=== PATIENT | female | born 1930 | race Caucasian/White ===

== ENCOUNTER 2017-03-07 17:28 | Inpatient (IN) ==
[2017-03-07] MEDS ORDERED: Nitroglycerin 1 INCH/GM PACKET TP ONE (19:20)
[2017-03-07 19:36] LABS: Eosinophils % 1.6 %; Hematocrit 27.5 % (35.3-44.9); Immature Granulocytes % 0.3 % (0-4); Mean Corpuscular Volume 90.8 fL (83.0-100.0); Mean Platelet Volume 9.1 fL (9.4-12.4); Red Blood Count 3.03 M/mcL (3.82-4.97)
[2017-03-07 19:38] LABS: Basophils % 0.6 %; Eosinophils # 0.1 K/mcL (0.0-0.6); Immature Platelets 2.2 % (1.1-6.1); Lymphocytes # 1.1 K/mcL (0.6-4.6); Lymphocytes % 36.2 %; Mean Corpuscular HGB Conc 32.7 g/dL (31.6-35.5); Mean Corpuscular Hemoglobin 29.7 pg (28.0-33.3); Monocytes # 0.3 K/mcL (0.0-1.3); Monocytes % 10.6 %; Neutrophils # 1.6 K/mcL (1.6-8.9); Red Cell Distribution Width 13.6 % (11.5-14.5); Segmented Neutrophils % 50.7 %
[2017-03-07 19:46] LABS: Calcium 10.2 mg/dL (8.6-10.8); Potassium 4.8 mEq/L (3.5-4.5)
[2017-03-07 19:54] LABS: Platelet Count 54 K/mcL (140-400)
[2017-03-07 19:58] LABS: Platelet Estimate Decreased (Normal)
[2017-03-07] MEDS ORDERED: Naloxone 0.4 MG/ML INJ IVP PRN (23:11)
--- NOTE | 2017-03-07 23:11 | Internal Med History&Physical ---
Date of Encounter: 03/07/17 Time of Encounter: 23:10 Assessment and Plan (1) Acute exacerbation of CHF (congestive heart failure) Current visit: Yes Status: Acute Patient has history of CHF and end-stage renal disease on hemodialysis. Chest x -ray is is still volume overload with the pulmonary vascular congestion and pulmonary edema. Patient is given a dose of intravenous Lasix. She will need hemodialysis. We will consult nephrology. She is on BiPAP for acute respiratory failure. Qualifiers: Congestive heart failure type: diastolic Qualified Code(s): I50.33 - Acute on chronic diastolic (congestive) heart failure (2) Acute respiratory failure Current visit: Yes Status: Acute Due to acute exacerbation of CHF/pulmonary edema. Patient is on BiPAP therapy. Continue. Qualifiers: Respiratory failure complication: hypoxia Qualified Code(s): J96.01 - Acute respiratory failure with hypoxia (3) Anemia Current visit: Yes Status: Chronic Likely secondary to anemia of chronic disease from ESRD. Hemoglobin seemed to be stable. Monitor Qualifiers: Anemia type: unspecified type Qualified Code(s): D64.9 - Anemia, unspecified (4) ESRD (end stage renal disease) on dialysis Current visit: Yes Status: Chronic On hemodialysis. Nephrology consultation - Dr Gallardo (5) Hypertension Current visit: Yes Status: Chronic Continue her home antihypertensive medications Qualifiers: Hypertension type: essential hypertension Qualified Code(s): I10 - Essential (primary) hypertension (6) DVT prophylaxis Current visit: Yes Status: Acute Heparin Internal Medicine - H&P: HPI Chief complaint: Shortness of breath Admitted From: Emergency Dept Plans for Post Hospital Care: Home History of present illness: Ms. 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 She presents to the emergency department with the history of gradually progressing shortness of breath over the last week. She now has shortness of breath at rest, orthopnea. She also reports swelling of the legs. She denies chest pain, cough, expectation, fever or chills, nausea, vomiting, abdominal pain, dysuria, hematuria, bowel problems. She was evaluated in the emergency department and was thought to have pulmonary vascular congestion, CHF. She was hypoxic in the ER and was started on BiPAP therapy and admitted to the hospitalist service for further workup and management. Past Med Surg Social Fam HX - Past Medical History Medical history: arthritis, CHF, coronary artery disease, dialysis, hyperlipidemia, hypertension, myocardial infarction, renal disease, valvular heart disease Psychiatric history: no psych history - Past Surgical History Surgical History: angioplasty/stent, appendectomy, cholecystectomy, heart valve replacement, herniorrhaphy - Social History Smoking Status: Never smoker Smokeless Tobacco Status: No Alcohol use: none Drug use: none - Family History Father Living Status: Brother Living Status: Sister Living Status: Mother Living Status: Hx Family Cardiac Disorders: Yes Internal Medicine - H&P: Meds Furosemide [Lasix] 20 mg PO DAILY 05/05/15 [History] Levothyroxine [Synthroid] 50 mcg PO QAM 05/05/15 [History] Multivitamin [Multivitamins] 1 each PO DAILY 05/05/15 [History] Ropinirole HCl [Requip] 1 mg PO HS 05/05/15 [History] Sodium Bicarbonate 1,300 mg PO BID 05/05/15 [History] Lisinopril 30 mg PO BID 09/17/16 [History] cloNIDine HCl [CloNIDine HCl] 0.1 mg PO BID 09/17/16 [History] Cinacalcet [Sensipar] 30 mg PO DAILY 03/07/17 [History] Labetalol HCl 200 mg PO BID 03/07/17 [History] Pantoprazole Sodium [Protonix] 40 mg PO DAILY 03/07/17 [History] amLODIPine [Norvasc] 5 mg PO BID 03/07/17 [History] Allergies nystatin Allergy (Mild, Verified 03/07/17 16:42) See Comments Shortly after application, pt complained of burning and redness at areas of application. quinine Allergy (Verified 03/07/17 16:42) Rash Tetanus Vaccines and Toxoid [Tetanus Vaccines & Toxoid] Adverse Reaction ( Unknown, Verified 03/07/17 16:42) See Comments Pt unsure. adhesive tape Adverse Reaction (Verified 03/07/17 16:42) Blister Sulfa (Sulfonamide Antibiotics) Adverse Reaction (Verified 03/07/17 16:42) See Comments pt. unsure All Systems PM: A 10-system review of systems was performed and is negative for pertinent findings except as documented above in the HPI. - Constitutional Vitals: Temp Pulse Resp BP Pulse Ox 98.3 F 63 20 167/51 96 03/07/17 17:40 03/07/17 22:34 03/07/17 22:34 03/07/17 22:34 03/07/17 22:34 Exam: General: Not in acute distress at the time of my evaluation. She is anxious with the BiPAP mask on and wants to remove that HEENT: BiPAP mask present. No conjunctival palor or scleral icterus Neck: No obvious neck swellings Lungs: Bilateral basal crackles present. Cardiac: Regular rate and rhythm. Systolic murmur present Abdomen: Soft, non tender. Bowel sounds present Genitourinary: No josé catheter Neurological: Alert and oriented. No gross localizing deficits Psych: Not aggressive or agitated Extremities: Bilateral leg edema Skin: No generalized rash Internal Med - H&P Results - Labs CBC & Chem 7: 03/07/17 19:27 03/07/17 19:27 - EKG Data -: EKG Interpreted by Myself EKG shows normal: sinus rhythm - EKG Data EKG comments: Daily as needed 3, aVF, V1, V2. Poor R-wave progression in V3 and V4. 03/08/17 04:26 - Impressions ITS Impressions Chest X-Ray 03/07/17 17:44 IMPRESSION: Findings compatible with congestive heart failure with pulmonary vascular congestion, mild pulmonary and interstitial edema along with bilateral pleural effusions, left larger than right. Likely associated bibasilar atelectasis. Stable cardiomegaly. D/ : / 03/07/2017 19:06:38 Ludwin Geronimo MD / jaqueline Interpreting Provider: Ludwin Geronimo MD
[2017-03-07] MEDS ORDERED: Furosemide 40 MG/4 ML VIAL IVP ONE (23:13)
--- NOTE | 2017-03-08 00:42 | Emergency Department Note ---
Disposition Clinical Impression: CHF (congestive heart failure) Qualifiers: Congestive heart failure type: combined Congestive heart failure chronicity: chronic Qualified Code(s): I50.42 - Chronic combined systolic (congestive) and diastolic (congestive) heart failure Disposition: Admitted As Inpatient Condition: Fair General Adult HPI - General Chief complaint: ED Shortness of Breath/Dyspnea Stated complaint: GURMEET, CHF exacerbation, HTN Time Seen by Provider: 03/07/17 19:11 Source: patient, family Limitations: no limitations Nursing Notes Reviewed: Yes Vital Signs Reviewed: Yes - History of Present Illness HPI Narrative: 78-year-old female presents with concern for dyspnea. Onset was several days ago. She has a history of end-stage renal disease and is on dialysis. She also has a history of congestive heart failure. She follows with Dr. Moore and nephrology. She denies fever or chills. She has audible rales and tachypnea at triage. She is mildly hypertensive. . Pain Scale: 0 - Related Data Home Medications Medication Instructions Recorded Confirmed Furosemide [Lasix] 20 mg PO DAILY 05/05/15 03/07/17 Levothyroxine [Synthroid] 50 mcg PO QAM 05/05/15 03/07/17 Multivitamin [Multivitamins] 1 each PO DAILY 05/05/15 03/07/17 Ropinirole HCl [Requip] 1 mg PO HS 05/05/15 03/07/17 Sodium Bicarbonate 1,300 mg PO BID 05/05/15 03/07/17 Lisinopril 30 mg PO BID 09/17/16 03/07/17 cloNIDine HCl [CloNIDine HCl] 0.1 mg PO BID 09/17/16 03/07/17 Cinacalcet [Sensipar] 30 mg PO DAILY 03/07/17 03/07/17 Labetalol HCl 200 mg PO BID 03/07/17 03/07/17 Pantoprazole Sodium [Protonix] 40 mg PO DAILY 03/07/17 03/07/17 amLODIPine [Norvasc] 5 mg PO BID 03/07/17 03/07/17 Allergies Allergy/AdvReac Type Severity Reaction Status Date / Time nystatin Allergy Mild See Verified 03/07/17 16:42 Comments quinine Allergy Rash Verified 03/07/17 16:42 Tetanus Vaccines and Toxoid AdvReac Unknown See Verified 03/07/17 16:42 [Tetanus Vaccines & Toxoid] Comments adhesive tape AdvReac Blister Verified 03/07/17 16:42 Sulfa (Sulfonamide AdvReac See Verified 03/07/17 16:42 Antibiotics) Comments All systems ED: reviewed and negative except as stated. 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 - Social History Smoking Status: Never smoker Smokeless Tobacco Status: No Alcohol use: Reports: none Drug use: Reports: none Physical Exam Rales bilaterally tachypnea - General Limitations: no limitations General appearance: alert - Head Head exam: atraumatic - Eye Eye exam: Present: normal appearance - ENT ENT exam: normal exam, normal oropharynx - Neck Neck exam: Present: normal inspection, full ROM - Chest Chest inspection: Present: normal inspection - Respiratory Respiratory exam: Present: accessory muscle use - Cardiovascular Cardiovascular exam: Present: regular rate, JVD - Abdominal Exam Abdominal exam: Present: soft, Non-Tender - Extremities Exam Extremities exam: Present: normal inspection, full ROM - Expanded Lower Extremity Exam Hip/Pelvis exam: Present: normal inspection, full ROM Upper leg exam: Present: normal inspection, full ROM - Back Exam Back exam: Present: normal inspection, full ROM - Neurological Exam Neurological exam: Present: alert, oriented X3, CN II-XII intact - Psychiatric Psychiatric exam: Present: normal affect, normal mood - Skin Skin exam: Present: warm, dry Course Vital Signs Temperature 98.3 F 03/07/17 17:40 Pulse Rate 63 03/07/17 17:40 Respiratory Rate 20 03/07/17 17:40 Blood Pressure 193/65 03/07/17 17:40 O2 Sat by Pulse Oximetry 94 03/07/17 17:40 Temperature 98.3 F 03/07/17 17:40 Pulse Rate 63 03/07/17 22:34 Respiratory Rate 20 03/07/17 23:55 Blood Pressure 170/78 03/07/17 23:55 O2 Sat by Pulse Oximetry 96 03/07/17 22:34 Oxygen Delivery Oxygen Delivery Nasal Cannula Medical Decision Making - MDM Narrative Medical decision making narrative: The patient is on dialysis schedule as prescribed. She has dyspnea consistent with congestive heart failure. Her chest x-ray shows pulmonary vascular congestion. EKG is nondiagnostic for STEMI. Cardiac biomarkers are mildly elevated consistent with end-stage renal disease. She does not make urine and diuresis would not provide much benefit at this point. She was placed on BiPAP with improvement of symptoms. Nitroglycerin was applied. It is likely that she will need dialysis for improvement of heart failure symptoms. She likely has volume overload at this stage. Plan to admit for possible dialysis tomorrow. I did attempt to notify Dr. Moore and a page was placed however we were unable to reach him. He will be notified via consultation by our hospitalist team - Medical Records Medical records reviewed: Yes I reviewed the patient's medical records. - Lab Data Lab results reviewed: Yes I reviewed the patient's lab results. Result diagrams: 03/07/17 19:27 03/07/17 19:27 Lab Results 03/07/17 03/07/17 03/07/17 Range/Units 19:27 19:27 19:27 WBC 3.1 L (4.3-11.1) K/mcL RBC 3.03 L (3.82-4.97) M/mcL Hgb 9.0 L (11.5-15.4) g/dL Hct 27.5 L (35.3-44.9) % MCV 90.8 (83.0-100.0) fL MCH 29.7 (28.0-33.3) pg MCHC 32.7 (31.6-35.5) g/dL RDW 13.6 (11.5-14.5) % Plt Count 54 L (140-400) K/mcL MPV 9.1 L (9.4-12.4) fL Immature Gran % 0.3 (0-4) % Seg Neutrophils % 50.7 % Lymphocytes % 36.2 % Monocytes % 10.6 % Eosinophils % 1.6 % Basophils % 0.6 % Neutrophils # 1.6 (1.6-8.9) K/mcL Lymphocytes # 1.1 (0.6-4.6) K/mcL Monocytes # 0.3 (0.0-1.3) K/mcL Eosinophils # 0.1 (0.0-0.6) K/mcL Basophils # 0.0 (0.0-0.2) K/mcL Platelet Estimate Decreased L (Normal) Immature Plt Fraction 2.2 (1.1-6.1) % Sodium 140 (136-145) mEq/L Potassium 4.8 H (3.5-4.5) mEq/L Chloride 106 (98-109) mEq/L Carbon Dioxide 25 (19-29) mEq/L BUN 37 H (7-20) mg/dL Creatinine 5.93 H (0.57-1.11) mg/dL Est GFR ( Amer) 8 L (> 60) Est GFR (Non-Af Amer) 7 L (> 60) BUN/Creatinine Ratio 6 (6-26) Glucose 108 H (70-99) mg/dL Calculated Osmolality 299 (280-300) Calcium 10.2 (8.6-10.8) mg/dL Troponin I 0.04 H* (0-0.03) ng/mL B-Natriuretic Peptide (0-100) pg/mL 03/07/17 Range/Units 19:27 WBC (4.3-11.1) K/mcL RBC (3.82-4.97) M/mcL Hgb (11.5-15.4) g/dL Hct (35.3-44.9) % MCV (83.0-100.0) fL MCH (28.0-33.3) pg MCHC (31.6-35.5) g/dL RDW (11.5-14.5) % Plt Count (140-400) K/mcL MPV (9.4-12.4) fL Immature Gran % (0-4) % Seg Neutrophils % % Lymphocytes % % Monocytes % % Eosinophils % % Basophils % % Neutrophils # (1.6-8.9) K/mcL Lymphocytes # (0.6-4.6) K/mcL Monocytes # (0.0-1.3) K/mcL Eosinophils # (0.0-0.6) K/mcL Basophils # (0.0-0.2) K/mcL Platelet Estimate (Normal) Immature Plt Fraction (1.1-6.1) % Sodium (136-145) mEq/L Potassium (3.5-4.5) mEq/L Chloride (98-109) mEq/L Carbon Dioxide (19-29) mEq/L BUN (7-20) mg/dL Creatinine (0.57-1.11) mg/dL Est GFR ( Amer) (> 60) Est GFR (Non-Af Amer) (> 60) BUN/Creatinine Ratio (6-26) Glucose (70-99) mg/dL Calculated Osmolality (280-300) Calcium (8.6-10.8) mg/dL Troponin I (0-0.03) ng/mL B-Natriuretic Peptide 3308 H (0-100) pg/mL
[2017-03-08] MEDS ORDERED: *HR* LORazepam 2 MG/ML VIAL IVP ONE (00:57)
[2017-03-08] MEDS ORDERED: *HR* Heparin 5,000 UNIT/ML VIAL SQ SCH (06:00)
[2017-03-08 06:16] LABS: Basophils % 0.4 %; Eosinophils % 0.4 %; Hemoglobin 9.1 g/dL (11.5-15.4); Immature Granulocytes % 0.4 % (0-4); Red Cell Distribution Width 13.5 % (11.5-14.5)
[2017-03-08 06:19] LABS: Hematocrit 27.6 % (35.3-44.9); Immature Platelets 1.9 % (1.1-6.1); Lymphocytes # 0.6 K/mcL (0.6-4.6); Lymphocytes % 23.7 %; Mean Corpuscular Hemoglobin 29.8 pg (28.0-33.3); Mean Corpuscular Volume 90.5 fL (83.0-100.0); Mean Platelet Volume 10.1 fL (9.4-12.4); Monocytes # 0.2 K/mcL (0.0-1.3); Monocytes % 7.3 %; Neutrophils # 1.8 K/mcL (1.6-8.9); Red Blood Count 3.05 M/mcL (3.82-4.97); Segmented Neutrophils % 67.8 %
[2017-03-08 06:20] LABS: Platelet Count 47 K/mcL (140-400)
[2017-03-08 06:28] LABS: Magnesium 1.9 mg/dL (1.6-2.6); Potassium 5.3 mEq/L (3.5-4.5)
--- NOTE | 2017-03-08 08:15 | Nephrology Consult Note ---
Date of Encounter: 03/08/17 Time of Encounter: 08:13 Assessment and Plan (1) ESRD (end stage renal disease) on dialysis Current Visit: Yes Status: Chronic Patient has end-stage renal disease. She presents with a clinical picture of acute on chronic diastolic congestive heart failure and poorly controlled blood pressure. She will undergo dialysis today for volume removal. Blood pressure medications will also be adjusted. Hemoglobin is 9.1. She will be given Aranesp. She does have evidence of pancytopenia. (2) Benign hypertension with end-stage renal disease Current Visit: Yes Status: Acute (3) Anemia in chronic kidney disease (CKD) Current Visit: Yes Status: Acute (4) Diastolic heart failure Current Visit: No Status: Chronic Qualifiers: Heart failure chronicity: chronic Qualified Code(s): I50.32 - Chronic diastolic (congestive) heart failure History of Present Illness - History of Present Illness This is an 86-year-old female [facility] Patient was admitted with a one-week history of progressive shortness of breath. Clinical picture is consistent with congestive heart failure. Previous echo showed an EF of 65%. She does report some swelling of the lower extremities but on physical exam there actually look fairly good. Her blood pressure is under suboptimal control. Patient has been having some orthopnea. She denies any chest pain. She denies any coughing. She was maintained on BiPAP overnight. She will undergo dialysis today. Fluid removal on dialysis has been limited by muscle cramping as an outpatient. Past Med Surg Social Fam HX - Past Medical History Medical history: arthritis, CHF, coronary artery disease, dialysis, hyperlipidemia, hypertension, myocardial infarction, renal disease, valvular heart disease Psychiatric history: no psych history - Past Surgical History Surgical History: angioplasty/stent, appendectomy, cholecystectomy, heart valve replacement, herniorrhaphy - Social History Smoking Status: Never smoker Smokeless Tobacco Status: No Alcohol use: none Drug use: none - Family History Father Living Status: Brother Living Status: Sister Living Status: Mother Living Status: Hx Family Cardiac Disorders: Yes Medications and Allergies Furosemide [Lasix] 20 mg PO DAILY 05/05/15 [History] Levothyroxine [Synthroid] 50 mcg PO QAM 05/05/15 [History] Multivitamin [Multivitamins] 1 each PO DAILY 05/05/15 [History] Ropinirole HCl [Requip] 1 mg PO HS 05/05/15 [History] Sodium Bicarbonate 1,300 mg PO BID 05/05/15 [History] Lisinopril 30 mg PO BID 09/17/16 [History] cloNIDine HCl [CloNIDine HCl] 0.1 mg PO BID 09/17/16 [History] Cinacalcet [Sensipar] 30 mg PO DAILY 03/07/17 [History] Labetalol HCl 200 mg PO BID 03/07/17 [History] Pantoprazole Sodium [Protonix] 40 mg PO DAILY 03/07/17 [History] amLODIPine [Norvasc] 5 mg PO BID 03/07/17 [History] Allergies nystatin Allergy (Mild, Verified 03/07/17 16:42) See Comments Shortly after application, pt complained of burning and redness at areas of application. quinine Allergy (Verified 03/07/17 16:42) Rash Tetanus Vaccines and Toxoid [Tetanus Vaccines & Toxoid] Adverse Reaction ( Unknown, Verified 03/07/17 16:42) See Comments Pt unsure. adhesive tape Adverse Reaction (Verified 03/07/17 16:42) Blister Sulfa (Sulfonamide Antibiotics) Adverse Reaction (Verified 03/07/17 16:42) See Comments pt. unsure Review of Systems Constitutional: as per HPI Eyes: bilateral: blurred vision (patient denies), diplopia (patient denies) Nose, mouth and throat: no dizziness, no headache(s) Cardiovascular: dyspnea, dyspnea on exertion, edema Respiratory: dyspnea, dyspnea on exertion Gastrointestinal: no abdominal pain, no change in bowel habits Musculoskeletal: no muscle weakness, no numbness Integumentary: no hirsutism, no striae Neurological: as per HPI Psychiatric: no depression, no difficulty concentrating Endocrine: as per HPI Hematologic/Lymphatic: no easy bruising, no lymphadenopathy Exam - Vital Signs Vital signs: Initial Vital Signs Temp Pulse Resp BP Pulse Ox 98.3 F 63 20 193/65 94 03/07/17 17:40 03/07/17 17:40 03/07/17 17:40 03/07/17 17:40 03/07/17 17:40 Vital Signs - Last 8 Hours Temp Pulse Resp BP Pulse Ox 03/08/17 08:02 98.0 F 70 20 176/63 96 03/08/17 05:35 98.3 F 76 18 185/51 97 03/08/17 05:13 18 96 03/08/17 00:55 29 96 Intake and Output 03/07/17 03/08/17 03/08/17 23:59 07:59 15:59 Other: Blood Glucose* 177 - General Appearance Exam: The patient is sitting on the edge of the bed eating breakfast. She is alert and oriented. She is in no acute distress. Blood pressure 180/79. Lungs faint bibasilar rales. Heart regular rate and rhythm with a 2/6 talk ejection murmur. Abdomen normal bowel sounds bruits masses organomegaly or tenderness. Lower extremities show minimal swelling. There is a tunnel dialysis catheter in the left chest. Results - Lab Results 03/08/17 05:41 03/08/17 05:41 Most recent lab results Calcium 10.0 mg/dL (8.6-10.8) 03/08/17 05:41 Magnesium 1.9 mg/dL (1.6-2.6) 03/08/17 05:41 Consult Discharge Plan - Plan Referrals: Angel Mcelroy DO [Primary Care Provider] -
[2017-03-08] MEDS: amLODIPine 5 MG TABLET PO SCH ×2 (08:17→20:31)
[2017-03-08] MEDS: Multivit/Ca/Min/Fe/FA 1 TAB TABLET PO SCH (08:17)
[2017-03-08] MEDS: Furosemide 20 MG TABLET PO SCH (08:17)
[2017-03-08] MEDS: cloNIDine HCl 0.1 MG TABLET PO SCH ×2 (08:17→20:31)
[2017-03-08] MEDS ORDERED: 0.9 % Sodium Chloride 250 ML IVC PRN (08:18)
[2017-03-08] MEDS ORDERED: *HR* Heparin 10,000 UNIT/10 ML VIAL IV PRN (08:32)
[2017-03-08] MEDS ORDERED: 0.9 % Sodium Chloride 2,000 ML ONE (08:37)
[2017-03-08 13:02] LABS: Hepatitis B Surface Antigen Nonreactive (Nonreactive)
--- NOTE | 2017-03-08 17:11 | Internal Med Progress Note ---
Date of Encounter: 03/08/17 Time of Encounter: 10:25 - Assessment and plan (1) Acute exacerbation of CHF (congestive heart failure) Current Visit: Yes Status: Acute Assessment and plan: Continue volume management with hemodialysis. Patient is clinically getting better. Continue lisinopril. Moderate risk for complications Qualifiers: Congestive heart failure type: diastolic Qualified Code(s): I50.33 - Acute on chronic diastolic (congestive) heart failure (2) Acute respiratory failure Current Visit: Yes Status: Acute Assessment and plan: Due to pulmonary edema and CHF. On 6 L nasal cannula. Will wean FiO2 as tolerated Qualifiers: Respiratory failure complication: hypoxia Qualified Code(s): J96.01 - Acute respiratory failure with hypoxia (3) Anemia Current Visit: Yes Status: Chronic Assessment and plan: Stable anemia. From chronic kidney disease. Qualifiers: Anemia type: other cause Other causes of anemia: chronic disease, kidney Qualified Code(s): N18.9 - Chronic kidney disease, unspecified; D63.1 - Anemia in chronic kidney disease (4) DVT prophylaxis Current Visit: Yes Status: Acute (5) ESRD (end stage renal disease) on dialysis Current Visit: Yes Status: Chronic Assessment and plan: Receiving dialysis today. Nephrology following (6) Hypertension Current Visit: No Status: Chronic Assessment and plan: Blood pressure elevated today. Resume home medications. Will monitor blood pressure closely. Adjust antihypertensives accordingly. Qualifiers: Hypertension type: essential hypertension Qualified Code(s): I10 - Essential (primary) hypertension - Subjective Interval history: Patient is receiving hemodialysis. Reports that her symptoms are improving. Shortness of breath is much better already. No chest pain. No other acute issues reported. - Constitutional Vitals: Temp Pulse Resp BP Pulse Ox 98.0 F 67 20 164/57 97 03/08/17 15:49 03/08/17 15:49 03/08/17 15:49 03/08/17 15:49 03/08/17 15:49 General appearance: Present: cooperative, mild distress, A&O X 3, pleasant, answers questions appropriately - Respiratory Respiratory exam: Present: CTAB. Absent: accessory muscle use, rales, rhonchi, wheezes - Cardiovascular Cardiovascular exam: Present: RRR, +S1, +S2. Absent: diastolic murmur, gallop, rubs, systolic murmur - GI/Abdominal GI/Abdominal exam: Present: normal bowel sounds, soft, no peritoneal signs. Absent: distended, tenderness - Extremities Exam Extremities exam: Present: pedal edema, warm, radial pulses palpable and symetrical. Absent: calf tenderness, cyanotic Internal Medicine: Result - Labs CBC & Chem 7: 03/08/17 05:41 03/08/17 05:41 Labs: Short CBC 03/08/17 Range/Units 05:41 WBC 2.6 L (4.3-11.1) K/mcL Hgb 9.1 L (11.5-15.4) g/dL Hct 27.6 L (35.3-44.9) % Plt Count 47 L (140-400) K/mcL Neutrophils # 1.8 (1.6-8.9) K/mcL BMP 03/08/17 05:41 Sodium 140 Potassium 5.3 H Chloride 106 Carbon Dioxide 23 BUN 40 H Creatinine 6.28 H Glucose 126 H Calcium 10.0 Cardiac Enzymes 03/08/17 03/08/17 Range/Units 05:41 11:00 Troponin I 0.05 H* 0.06 H* (0-0.03) ng/mL - VTE Documentation of Mechanical Device: Intermittent pneumatic compression device Consult Discharge Plan - Plan Referrals: Angel Mcelroy DO [Primary Care Provider] - 03/15/17 11:30 am (web request. 03/2017) - Attending Attestation This document has been at least partially created by [employer] recognition technology by Dr. Buckley. Errors in grammar, wording or other phrases may exist. If errors are found after the documentation is signed, they will be addressed individually in the addendum section of this document when appropriate.
[2017-03-08] MEDS ORDERED: Acetaminophen 325 MG TABLET PO ONE (20:14)
[2017-03-08] MEDS ORDERED: rOPINIRole 1 MG TABLET PO SCH (21:00)
--- NOTE | 2017-03-08 23:52 | Electrocardiograph Report ---
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
[2017-03-09 06:14] LABS: Basophils % 0.6 %; Eosinophils # 0.1 K/mcL (0.0-0.6); Eosinophils % 1.6 %; Hemoglobin 7.7 g/dL (11.5-15.4); Immature Granulocytes % 0.3 % (0-4); Mean Corpuscular HGB Conc 32.1 g/dL (31.6-35.5); Mean Corpuscular Hemoglobin 29.1 pg (28.0-33.3); Mean Corpuscular Volume 90.6 fL (83.0-100.0); Mean Platelet Volume 9.9 fL (9.4-12.4); Monocytes # 0.3 K/mcL (0.0-1.3); Monocytes % 10.9 %; Neutrophils # 1.7 K/mcL (1.6-8.9); Red Blood Count 2.65 M/mcL (3.82-4.97); Red Cell Distribution Width 13.3 % (11.5-14.5); Segmented Neutrophils % 53.6 %
[2017-03-09 06:15] LABS: Platelet Count 44 K/mcL (140-400)
[2017-03-09 06:51] LABS: Calcium 8.7 mg/dL (8.6-10.8)
--- NOTE | 2017-03-09 08:27 | Nephrology Progress Note ---
Date of Encounter: 03/09/17 Time of Encounter: 08:25 - Assessment and Plan (1) ESRD (end stage renal disease) on dialysis Current Visit: Yes Status: Chronic Patient's dyspnea is improved following dialysis. She still has evidence of some dry rales on exam. This raises the possibility of possible interstitial lung disease. She also exhibits pancytopenia. May be worthwhile to consider a hematology consultation. She continues on Aranesp for her anemia. (2) Benign hypertension with end-stage renal disease Current Visit: Yes Status: Acute (3) Anemia in chronic kidney disease (CKD) Current Visit: Yes Status: Acute (4) Diastolic heart failure Current Visit: No Status: Chronic Qualifiers: Heart failure chronicity: chronic Qualified Code(s): I50.32 - Chronic diastolic (congestive) heart failure Subjective Interval history: The patient reports her exertional dyspnea is improved. She tolerated dialysis yesterday. She only had a small amount of muscle cramping. Blood pressure is improved as well. Hemoglobin has dropped however. She also has evidence of pancytopenia. Objective - Vital Signs Vital signs: Vital Signs Temp Pulse Resp BP Pulse Ox 03/09/17 07:06 98.4 F 61 16 178/61 99 03/09/17 03:21 98.5 F 62 21 153/49 96 03/08/17 23:12 98.2 F 66 24 135/47 96 03/08/17 20:25 97.8 F 65 17 165/65 98 03/08/17 15:49 98.0 F 67 20 164/57 97 03/08/17 14:24 155/67 03/08/17 12:40 97.7 F 18 155/67 03/08/17 12:30 142/63 03/08/17 12:15 132/56 03/08/17 12:00 129/51 03/08/17 11:45 126/53 03/08/17 11:30 128/51 03/08/17 11:15 139/58 03/08/17 11:00 147/64 03/08/17 10:45 150/62 03/08/17 10:30 163/69 03/08/17 10:15 162/66 03/08/17 10:00 168/66 03/08/17 09:45 175/68 03/08/17 09:30 97.7 F 22 181/71 Intake and Output 03/08/17 03/09/17 03/09/17 23:59 07:59 15:59 Other: # Voids 1 Weight 71.2 kg Blood Glucose* 140 101 Patient Weight 03/09/17 23:59 Weight 71.2 kg - General Appearance Exam: Patient is alert and oriented. She is in no acute distress. Lungs bibasilar dry rales. Heart irregular rate and rhythm. Abdomen is benign. There is no peripheral edema. There is a tunnel dialysis catheter in the left chest. - Lab 03/09/17 05:44 03/09/17 05:44 Most recent lab results Calcium 8.7 mg/dL (8.6-10.8) 03/09/17 05:44 Magnesium 1.9 mg/dL (1.6-2.6) 03/08/17 05:41 - VTE Documentation of Mechanical Device: Intermittent pneumatic compression device Consult Discharge Plan - Plan Referrals: Angel Mcelroy DO [Primary Care Provider] - 03/15/17 11:30 am (web request. 03/2017)
[2017-03-09 09:10] LABS: % Iron Saturation 25 % (15-50); Iron 52 mcg/dL (50-170); Transferrin 149 mg/dL (180-382)
[2017-03-09 09:12] LABS: Hematocrit 26.9 % (35.3-44.9); Hemoglobin 8.9 g/dL (11.5-15.4)
[2017-03-09] MEDS: Multivit/Ca/Min/Fe/FA 1 TAB TABLET PO SCH (09:22)
[2017-03-09] MEDS: Furosemide 20 MG TABLET PO SCH (09:23)
[2017-03-09] MEDS: amLODIPine 5 MG TABLET PO SCH (09:23)
[2017-03-09] MEDS: cloNIDine HCl 0.1 MG TABLET PO SCH (09:26)
[2017-03-09 10:04] LABS: Ferritin 2302 ng/ml (5-204)
[2017-03-09 10:40] VITALS: BP 146/49
[2017-03-09 10:52] LABS: Folate 15.4 ng/mL (7.0-31.4)
--- NOTE | 2017-03-09 14:35 | Discharge Summary ---
Date of Encounter: 03/09/17 Time of Encounter: 11:30 - Discharge Diagnosis (1) Acute exacerbation of CHF (congestive heart failure) Priority: Primary Status: Acute Qualifiers: Congestive heart failure type: diastolic Qualified Code(s): I50.33 - Acute on chronic diastolic (congestive) heart failure (2) Acute respiratory failure Priority: Secondary Status: Resolved Qualifiers: Respiratory failure complication: hypoxia Qualified Code(s): J96.01 - Acute respiratory failure with hypoxia (3) Anemia Priority: Secondary Status: Chronic Qualifiers: Anemia type: other cause Other causes of anemia: chronic disease, kidney Qualified Code(s): N18.9 - Chronic kidney disease, unspecified; D63.1 - Anemia in chronic kidney disease (4) DVT prophylaxis Priority: Secondary Status: Acute (5) ESRD (end stage renal disease) on dialysis Priority: Secondary Status: Chronic (6) Hypertension Priority: Secondary Status: Chronic Qualifiers: Hypertension type: essential hypertension Qualified Code(s): I10 - Essential (primary) hypertension - Discharge Medications Prescriptions: Labetalol [Trandate] 100 mg PO BID #60 tablet Home Medications: Furosemide [Lasix] 20 mg PO DAILY 05/05/15 [History] Levothyroxine [Synthroid] 50 mcg PO QAM 05/05/15 [History] Multivitamin [Multivitamins] 1 each PO DAILY 05/05/15 [History] Ropinirole HCl [Requip] 1 mg PO HS 05/05/15 [History] Sodium Bicarbonate 1,300 mg PO BID 05/05/15 [History] Lisinopril 30 mg PO BID 09/17/16 [History] cloNIDine HCl [CloNIDine HCl] 0.1 mg PO BID 09/17/16 [History] Cinacalcet [Sensipar] 30 mg PO DAILY 03/07/17 [History] Labetalol HCl 200 mg PO BID 03/07/17 [History] Pantoprazole Sodium [Protonix] 40 mg PO DAILY 03/07/17 [History] amLODIPine [Norvasc] 5 mg PO BID 03/07/17 [History] Labetalol [Trandate] 100 mg PO BID #60 tablet 03/09/17 [Rx] Allergies/Adverse Reactions: Allergies nystatin Allergy (Mild, Verified 03/07/17 16:42) See Comments Shortly after application, pt complained of burning and redness at areas of application. quinine Allergy (Verified 03/07/17 16:42) Rash Tetanus Vaccines and Toxoid [Tetanus Vaccines & Toxoid] Adverse Reaction ( Unknown, Verified 03/07/17 16:42) See Comments Pt unsure. adhesive tape Adverse Reaction (Verified 03/07/17 16:42) Blister Sulfa (Sulfonamide Antibiotics) Adverse Reaction (Verified 03/07/17 16:42) See Comments pt. unsure Date of admission: 03/07/17 23:26 Primary care physician: Angel Mcelroy DO Consults: 03/08/17 01:22 Consult to Apiarist [CONS] Routine Reason for SW Consult: Patient from home alone with frequent checking in from family members. Ambulates and cares for self well with use of walker. Patient does not have home oxygen at this time and home health is not in place. 03/08/17 08:30 Consult to Dialysis [CONS] ONCE Discharging clinician: Willy Buckley Anticipated date of discharge: 03/09/17 - Patient Status Disposition: Home, Self-Care Condition: Good Functional capacity at discharge: wheelchair bound Overall status at discharge: patient is progressing back to baseline - Discharge Instructions Instructions: Heart Failure (DC), Acute Respiratory Distress Syndrome (DC), Anemia (GEN) Follow Up With: Angel Mcelroy DO [Primary Care Provider] - 03/15/17 11:30 am (web request. 03/2017) Forms: ED Satisfaction Letter Additional Instructions: Avoid stopping clonidine abruptly. - Diet and Activity Activity: increase activity as tolerated Diet: low fat, low cholesterol, low salt diet, other (Renal ) Hospital course: Ms. Andrew is a 86 year old female patient with a history of end-stage renal disease on hemodialysis was admitted with acute exacerbation of CHF with acute respiratory failure. Patient was requiring about 5-6 L/m O2 supplementation via nasal cannula to keep her sats are greater than 90%. She also required BiPAP initially. Her respiratory failure is believed to be due to pulmonary edema related to volume overload. She underwent hemodialysis yesterday morning with good improvement in her symptoms. Since then she has continued to recover and is feeling much better today with regards to her breathing. She was evaluated on room air and was able to ambulate for 3 minutes without any drop in her oxygen levels. As such she does not require O2 supplementation at home. Presently, she is stable to be discharged home. Her labetalol dosage has been increased to 300 mg by mouth twice daily to control blood pressure better. The patient does take clonidine and labetalol and is advised to not discontinue clonidine abruptly. Patient also has chronic pancytopenia and has been seeing hematology as outpatient for this problem. Although she does remain pancytopenic. This morning her hemoglobin level was reported as 7.7 which is lower than her values yesterday of 9.1. This was repeated later today and her hemoglobin level was 8.9. She can follow up further with her hematology nurse as needed for further management on the believed this is mostly related to her chronic kidney disease and end-stage renal disease. She does receive darbepoetin as outpatient which she will continue. - Time Spent with Patient Total time spent providing and/or coordinating discharge services: Greater than 30 minutes (35 min) - Constitutional Vitals: Temp Pulse Resp BP Pulse Ox 98.1 F 68 18 146/49 97 03/09/17 10:35 03/09/17 10:35 03/09/17 10:35 03/09/17 10:35 03/09/17 13:31 General appearance: Present: cooperative, A&O X 3, pleasant, answers questions appropriately - Neck Neck exam general surgery: Present: supple, trachea midline. Absent: lymphadenopathy - Respiratory Respiratory exam: Present: CTAB. Absent: accessory muscle use, rales, rhonchi, wheezes Additional comments: Basal crackles - GI/Abdominal GI/Abdominal exam: Present: normal bowel sounds, soft, no peritoneal signs. Absent: distended, tenderness - Extremities Exam Extremities exam: Present: pedal edema, warm, radial pulses palpable and symetrical. Absent: calf tenderness, cyanotic - VTE Documentation of Mechanical Device: Intermittent pneumatic compression device - Attending Attestation This document has been at least partially created by [employer] recognition technology by Dr. Buckley. Errors in grammar, wording or other phrases may exist. If errors are found after the documentation is signed, they will be addressed individually in the addendum section of this document when appropriate.
== END 2017-03-09 15:40 | disposition home or self-care (01) | DRG 291 ==
LOC: EMEROO 17:28 → 2ANU 17:28 → SUATTDRO 23:26 → 2ANU 23:56
PROVIDERS: ADMIT Internal Medicine; ATTEND Internal Medicine

== ENCOUNTER 2017-04-07 02:13 | Inpatient (IN) ==
[2017-04-07 04:09] LABS: Calcium 10.1 mg/dL (8.6-10.8); Potassium 4.2 mEq/L (3.5-4.5)
[2017-04-07 04:15] LABS: Eosinophils % 1.3 %; Hemoglobin 8.8 g/dL (11.5-15.4)
[2017-04-07 04:17] LABS: Basophils % 0.4 %; Hematocrit 28.5 % (35.3-44.9); Immature Granulocytes % 0.9 % (0-4); Lymphocytes # 0.5 K/mcL (0.6-4.6); Lymphocytes % 22.8 %; Mean Corpuscular HGB Conc 30.9 g/dL (31.6-35.5); Mean Corpuscular Hemoglobin 29.5 pg (28.0-33.3); Mean Corpuscular Volume 95.6 fL (83.0-100.0); Mean Platelet Volume 10.4 fL (9.4-12.4); Monocytes # 0.3 K/mcL (0.0-1.3); Monocytes % 11.6 %; Neutrophils # 1.4 K/mcL (1.6-8.9); Red Blood Count 2.98 M/mcL (3.82-4.97); Red Cell Distribution Width 15.5 % (11.5-14.5)
[2017-04-07 04:18] LABS: Platelet Count 56 K/mcL (140-400)
[2017-04-07 04:45] LABS: Platelet Estimate Decreased (Normal)
[2017-04-07] MEDS ORDERED: Furosemide 40 MG/4 ML VIAL IVP ONE (05:12)
--- NOTE | 2017-04-07 05:12 | Emergency Department Note ---
Disposition Clinical Impression: History of renal dialysis, Pedal edema CHF exacerbation Qualifiers: Congestive heart failure type: unspecified congestive heart failure type Qualified Code(s): I50.9 - Heart failure, unspecified Disposition: Admitted As Inpatient Condition: Fair Time of Disposition: 05:39 SOB HPI - General Chief Complaint: ED Shortness of Breath/Dyspnea Stated Complaint: leg swelling,GURMEET,states has CHF and kidney failure Time Seen by Provider: 04/07/17 05:08 Source: patient, family Mode of arrival: ambulatory Limitations: no limitations Nursing Notes Reviewed: Yes Vital Signs Reviewed: Yes - History of Present Illness Patient is an 86-year-old female with past medical history of CHF, end-stage renal disease with dialysis on Tuesday, , Tuesday. She presents today due to increased shortness of breath and orthopnea, increased edema, increased abdominal girth. She says that she is due for dialysis today. She believes that "she needs fluid drained. "Denies any chest pain, nausea, vomiting, fevers , diarrhea, abdominal pain. - Related Data Home Medications Medication Instructions Recorded Confirmed Furosemide [Lasix] 20 mg PO DAILY 05/05/15 03/07/17 Levothyroxine [Synthroid] 50 mcg PO QAM 05/05/15 03/07/17 Multivitamin [Multivitamins] 1 each PO DAILY 05/05/15 03/07/17 Ropinirole HCl [Requip] 1 mg PO HS 05/05/15 03/07/17 Sodium Bicarbonate 1,300 mg PO BID 05/05/15 03/07/17 Lisinopril 30 mg PO BID 09/17/16 03/07/17 cloNIDine HCl [CloNIDine HCl] 0.1 mg PO BID 09/17/16 03/07/17 Cinacalcet [Sensipar] 30 mg PO DAILY 03/07/17 03/07/17 Labetalol HCl 200 mg PO BID 03/07/17 03/07/17 Pantoprazole Sodium [Protonix] 40 mg PO DAILY 03/07/17 03/07/17 amLODIPine [Norvasc] 5 mg PO BID 03/07/17 03/07/17 Previous Rx's Medication Instructions Recorded Labetalol [Trandate] 100 mg PO BID #60 tablet 03/09/17 Allergies Allergy/AdvReac Type Severity Reaction Status Date / Time nystatin Allergy Mild See Verified 03/07/17 16:42 Comments quinine Allergy Rash Verified 03/07/17 16:42 Tetanus Vaccines and Toxoid AdvReac Unknown See Verified 03/07/17 16:42 [Tetanus Vaccines & Toxoid] Comments adhesive tape AdvReac Blister Verified 03/07/17 16:42 Sulfa (Sulfonamide AdvReac See Verified 03/07/17 16:42 Antibiotics) Comments All systems ED: reviewed and negative except as stated. Constitutional: Denies: fever Cardiovascular: Denies: chest pain, palpitations Respiratory: Reports: dyspnea. Denies: cough, wheezes Gastrointestinal: Denies: abdominal pain, nausea, vomiting, diarrhea, constipation Neurological: Denies: headache, weakness, numbness, paresthesias Past Medical History - Past Medical History Attestation: Yes The following information was validated with the patient. Source: patient Medical history: Reports: arthritis, CHF, coronary artery disease, dialysis, hyperlipidemia, hypertension, myocardial infarction, renal disease, valvular heart disease Surgical history: Reports: angioplasty/stent, appendectomy, cholecystectomy, heart valve replacement, herniorrhaphy Psychiatric history: Reports: no psych history [employer] history: Reports: no [employer] history - Social History Smoking Status: Never smoker Smokeless Tobacco Status: No Alcohol use: Reports: none Drug use: Reports: none Physical Exam - General Limitations: no limitations General appearance: alert, in no apparent distress - Head Head exam: atraumatic, normocephalic, normal inspection - Eye Eye exam: Present: normal appearance, PERRL, EOMI - ENT ENT exam: normal exam, normal oropharynx, mucous membranes moist - Neck Neck exam: Present: full ROM, trachea midline, other - Chest Chest inspection: Present: normal inspection, symmetric chest wall rise - Respiratory Respiratory exam: Present: accessory muscle use, other (Crackles bilateral lower lobes.) - Cardiovascular Cardiovascular exam: Present: regular rate, normal rhythm, normal heart sounds - Abdominal Exam Abdominal exam: Present: soft, Non-Tender, distention. Absent: tenderness, guarding, rebound, rigidity - Extremities Exam Extremities exam: Present: full ROM, pedal edema. Absent: tenderness - Neurological Exam Neurological exam: Present: alert, oriented X3 - Psychiatric Psychiatric exam: Present: normal affect, normal mood - Skin Skin exam: Present: warm, dry, intact, normal color Course Course Narrative: Patient was hypertensive on presentation, the rest of the vitals were within normal limits. Physical exam shows signs of fluid overload with bilateral lower lobe crackles, pedal edema, abdominal distention. Basic lab work shows elevated BNP, elevated troponin that is near baseline for the patient. No active chest pain at this time. Chest x-ray shows bilateral pleural effusions. Patient was offered BiPAP, she refused. She was also offered nitroglycerin, she refused. She was only willing to try IV Lasix. She also was agreeable with being admitted for dialysis to remove fluid. Vital Signs Temperature 98.1 F 04/07/17 02:17 Pulse Rate 59 04/07/17 02:17 Respiratory Rate 18 04/07/17 02:17 Blood Pressure 162/53 04/07/17 02:17 O2 Sat by Pulse Oximetry 92 04/07/17 02:17 Temperature 0 F L 04/07/17 05:33 Pulse Rate 65 04/07/17 05:33 Respiratory Rate 18 04/07/17 05:33 Blood Pressure 188/64 04/07/17 05:33 O2 Sat by Pulse Oximetry 98 04/07/17 05:33 Oxygen Delivery Oxygen Delivery Room Air Shortness of Breath/Dyspnea - [facility] [place] Narrative Medical decision making narrative: Patient was hypertensive on presentation, the rest of the vitals were within normal limits. Physical exam shows signs of fluid overload with bilateral lower lobe crackles, pedal edema, abdominal distention. Basic lab work shows elevated BNP, elevated troponin that is near baseline for the patient. No active chest pain at this time. Chest x-ray shows bilateral pleural effusions. Patient was offered BiPAP, she refused. She was also offered nitroglycerin, she refused. She was only willing to try IV Lasix. She also was agreeable with being admitted for dialysis to remove fluid. - Medical Records Medical records reviewed: Yes I reviewed the patient's medical records. - Lab Data Lab results reviewed: Yes I reviewed the patient's lab results. Result diagrams: 04/07/17 03:46 04/07/17 03:46 Lab Results 04/07/17 04/07/17 04/07/17 Range/Units 03:46 03:46 03:46 WBC 2.2 L (4.3-11.1) K/mcL RBC 2.98 L (3.82-4.97) M/mcL Hgb 8.8 L (11.5-15.4) g/dL Hct 28.5 L (35.3-44.9) % MCV 95.6 (83.0-100.0) fL MCH 29.5 (28.0-33.3) pg MCHC 30.9 L (31.6-35.5) g/dL RDW 15.5 H (11.5-14.5) % Plt Count 56 L (140-400) K/mcL MPV 10.4 (9.4-12.4) fL Immature Gran % 0.9 (0-4) % Seg Neutrophils % 63.0 % Lymphocytes % 22.8 % Monocytes % 11.6 % Eosinophils % 1.3 % Basophils % 0.4 % Neutrophils # 1.4 L (1.6-8.9) K/mcL Lymphocytes # 0.5 L (0.6-4.6) K/mcL Monocytes # 0.3 (0.0-1.3) K/mcL Eosinophils # 0.0 (0.0-0.6) K/mcL Basophils # 0.0 (0.0-0.2) K/mcL Platelet Estimate Decreased L (Normal) Immature Plt Fraction 4.0 (1.1-6.1) % Sodium 142 (136-145) mEq/L Potassium 4.2 (3.5-4.5) mEq/L Chloride 107 (98-109) mEq/L Carbon Dioxide 24 (19-29) mEq/L BUN 23 H (7-20) mg/dL Creatinine 4.93 H (0.57-1.11) mg/dL Est GFR ( Amer) 10 L (> 60) Est GFR (Non-Af Amer) 8 L (> 60) BUN/Creatinine Ratio 5 L (6-26) Glucose 110 H (70-99) mg/dL Calculated Osmolality 298 (280-300) Lactic Acid 0.7 (0.5-2.2) mmol/L Calcium 10.1 (8.6-10.8) mg/dL Troponin I (0-0.03) ng/mL B-Natriuretic Peptide (0-100) pg/mL 04/07/17 04/07/17 Range/Units 03:46 03:46 WBC (4.3-11.1) K/mcL RBC (3.82-4.97) M/mcL Hgb (11.5-15.4) g/dL Hct (35.3-44.9) % MCV (83.0-100.0) fL MCH (28.0-33.3) pg MCHC (31.6-35.5) g/dL RDW (11.5-14.5) % Plt Count (140-400) K/mcL MPV (9.4-12.4) fL Immature Gran % (0-4) % Seg Neutrophils % % Lymphocytes % % Monocytes % % Eosinophils % % Basophils % % Neutrophils # (1.6-8.9) K/mcL Lymphocytes # (0.6-4.6) K/mcL Monocytes # (0.0-1.3) K/mcL Eosinophils # (0.0-0.6) K/mcL Basophils # (0.0-0.2) K/mcL Platelet Estimate (Normal) Immature Plt Fraction (1.1-6.1) % Sodium (136-145) mEq/L Potassium (3.5-4.5) mEq/L Chloride (98-109) mEq/L Carbon Dioxide (19-29) mEq/L BUN (7-20) mg/dL Creatinine (0.57-1.11) mg/dL Est GFR ( Amer) (> 60) Est GFR (Non-Af Amer) (> 60) BUN/Creatinine Ratio (6-26) Glucose (70-99) mg/dL Calculated Osmolality (280-300) Lactic Acid (0.5-2.2) mmol/L Calcium (8.6-10.8) mg/dL Troponin I 0.06 H* (0-0.03) ng/mL B-Natriuretic Peptide > 5000 H (0-100) pg/mL - Radiology Data Radiology results reviewed: Yes I reviewed the patient's radiology results. Chest X-Ray 04/07/17 02:24 IMPRESSION: Cardiomegaly with mild pulmonary edema pattern and bilateral pleural effusions has not significantly changed from the previous chest x-ray. D/ / Jareth Parker MD / Jareth Parker MD Interpreting Provider: Jareth Parker MD Attestation Statement - Attestation Attestation: I, Mingo Wiley MD, personally evaluated this patient and discussed their management with the resident physician. I reviewed the resident's note and agree with the documented findings, medical decision making, and plan of care. 86-year-old female with history of end-stage renal disease on hemodialysis presents to the emergency department with a complaint of increasing shortness of breath over the past few days which became acutely worse during the night tonight. Also some increased swelling of her feet and ankles. No chest pain. No cough or fever. She is not on oxygen at home. She has not missed her dialysis which is due today. On examination patient is a well-developed well-nourished elderly female in no acute distress. She is alert and oriented 3. There is no cyanosis or diaphoresis. Chest is nontender to palpation. Breath sounds are decreased bilaterally with some bibasilar rales. No wheezes noted. Heart regular rate and rhythm. Abdomen soft and nontender with normal bowel sounds. 2+ pedal edema. Chest x-ray shows cardiomegaly with some pulmonary edema and bilateral pleural effusions. Labs reviewed. The hospitalist, Dr. Bernal, was consulted and accepted admission of the patient.
[2017-04-07] MEDS ORDERED: *HR* Morphine 2 MG/ML SYRINGE IVP PRN (07:22)
[2017-04-07] MEDS ORDERED: Acetaminophen 325 MG TABLET PO PRN (07:22)
[2017-04-07] MEDS ORDERED: Ondansetron 4 MG/2 ML VIAL IVP PRN (07:22)
[2017-04-07] MEDS ORDERED: Naloxone 0.4 MG/ML INJ IVP PRN (07:22)
--- NOTE | 2017-04-07 07:58 | Nephrology Consult Note ---
Date of Encounter: 04/07/17 Time of Encounter: 07:56 Assessment and Plan (1) ESRD (end stage renal disease) on dialysis Current Visit: No Status: Chronic Patient has a history of end-stage renal disease related to hypertension nephrosclerosis. She presents with progressive shortness of breath over the past week. Chest x-ray suggests some mild pulmonary edema as well as bilateral pleural effusions. Certainly a lot of her shortness of breath could be related to volume overload and acute congestive heart failure. She does have pancytopenia. An opportunistic infection also needs to be considered. Patient will be sent to dialysis urgently for volume removal. May be worthwhile to pursue a CT scan of the chest. Also may be worthwhile to consider a left thoracentesis based on CT scan findings. She also may benefit from a hematology evaluation. (2) Pancytopenia Current Visit: Yes Status: Acute (3) History of aortic valve replacement Current Visit: No Status: Resolved (4) CAD (coronary artery disease) Current Visit: No Status: Acute Qualifiers: Coronary Disease-Associated Artery/Lesion type: wiyot artery [place] vs. transplanted heart: wiyot heart Associated angina: without angina Qualified Code(s): I25.10 - Atherosclerotic heart disease of wiyot coronary artery without angina pectoris (5) Acute exacerbation of CHF (congestive heart failure) Current Visit: No Status: Acute Qualifiers: Congestive heart failure type: diastolic Qualified Code(s): I50.33 - Acute on chronic diastolic (congestive) heart failure History of Present Illness - History of Present Illness This is an 86-year-old female with end-stage renal disease related to hypertension nephrosclerosis who receives dialysis pectin. Patient was admitted with worsening shortness of breath. The family says for over the past week she has had progressive shortness of breath. She has had a cough and is recently been treated for pneumonia by her primary care physician. Her cough is improved. She has orthopnea and has been sleeping upright. She also has extreme exertional dyspnea. She denies any chest pain. Her blood pressure is poorly controlled. Chest x-ray shows cardiomegaly with a mild pulmonary edema pattern and also bilateral effusions left worse than the right. Past Med Surg Social Fam HX - Past Medical History Medical history: arthritis, CHF, coronary artery disease, dialysis, hyperlipidemia, hypertension, myocardial infarction, renal disease, valvular heart disease Psychiatric history: no psych history - Past Surgical History Surgical History: angioplasty/stent, appendectomy, cholecystectomy, heart valve replacement, herniorrhaphy - Social History Smoking Status: Never smoker Smokeless Tobacco Status: No Alcohol use: none Drug use: none - Family History Father Living Status: Brother Living Status: Sister Living Status: Mother Living Status: Hx Family Cardiac Disorders: Yes Medications and Allergies Furosemide [Lasix] 20 mg PO DAILY 05/05/15 [History] Levothyroxine [Synthroid] 50 mcg PO QAM 05/05/15 [History] Multivitamin [Multivitamins] 1 each PO DAILY 05/05/15 [History] Ropinirole HCl [Requip] 1 mg PO HS 05/05/15 [History] Sodium Bicarbonate 1,300 mg PO BID 05/05/15 [History] Lisinopril 30 mg PO BID 09/17/16 [History] cloNIDine HCl [CloNIDine HCl] 0.1 mg PO BID 09/17/16 [History] Cinacalcet [Sensipar] 30 mg PO DAILY 03/07/17 [History] Labetalol HCl 200 mg PO BID 03/07/17 [History] Pantoprazole Sodium [Protonix] 40 mg PO DAILY 03/07/17 [History] amLODIPine [Norvasc] 5 mg PO BID 03/07/17 [History] Labetalol [Trandate] 100 mg PO BID #60 tablet 03/09/17 [Rx] Allergies nystatin Allergy (Mild, Verified 03/07/17 16:42) See Comments Shortly after application, pt complained of burning and redness at areas of application. quinine Allergy (Verified 03/07/17 16:42) Rash Tetanus Vaccines and Toxoid [Tetanus Vaccines & Toxoid] Adverse Reaction ( Unknown, Verified 03/07/17 16:42) See Comments Pt unsure. adhesive tape Adverse Reaction (Verified 03/07/17 16:42) Blister Sulfa (Sulfonamide Antibiotics) Adverse Reaction (Verified 03/07/17 16:42) See Comments pt. unsure Review of Systems Constitutional: weakness Eyes: bilateral: blurred vision (patient denies), diplopia (patient denies) Nose, mouth and throat: no dizziness, no headache(s) Cardiovascular: as per HPI, dyspnea, dyspnea on exertion, edema, orthopnea, paroxysmal nocturnal dyspnea Respiratory: as per HPI, dyspnea, dyspnea on exertion Gastrointestinal: no abdominal pain, no change in bowel habits Musculoskeletal: no muscle weakness, no numbness Integumentary: no hirsutism, no striae Neurological: weakness Psychiatric: no depression, no difficulty concentrating Endocrine: as per HPI Exam - Vital Signs Vital signs: Initial Vital Signs Temp Pulse Resp BP Pulse Ox 98.1 F 59 18 162/53 92 04/07/17 02:17 04/07/17 02:17 04/07/17 02:17 04/07/17 02:17 04/07/17 02:17 Vital Signs - Last 8 Hours Pulse Ox 04/07/17 07:38 92 - General Appearance Exam: Patient is alert and oriented. She is sitting upright in bed. She is in moderate pulmonary distress. Neck is supple. Lungs demonstrate coarse rales in the bases as well as a diminished breath sounds throughout. There is no wheezing. Heart regular rate and rhythm with a 2/6 soft ejection murmur. Abdomen shows normal bowel sounds are bruised masses organomegaly or tenderness. Lower extremity show mild edema. There is a tunnel dialysis catheter in the left chest. Results - Lab Results 04/07/17 03:46 04/07/17 03:46 Most recent lab results Calcium 10.1 mg/dL (8.6-10.8) 04/07/17 03:46 Consult Discharge Plan - Plan Referrals: Angel Mcelroy DO [Primary Care Provider] -
[2017-04-07] MEDS ORDERED: 0.9 % Sodium Chloride 250 ML IVC PRN (08:00)
[2017-04-07] MEDS ORDERED: Darbepoetin 100 MCG/0.5 ML SYRINGE SQ SCH (08:15)
--- NOTE | 2017-04-07 08:48 | Internal Med History&Physical ---
Date of Encounter: 04/07/17 Time of Encounter: 08:15 Assessment and Plan (1) ESRD (end stage renal disease) on dialysis Current visit: No Status: Chronic ESRD on hemodialysis on Saturdays Fluid overload status ith pulmonary edema Nephrology consult - hemodialysis to be done now IV Lasix given Strict I's and O's, fluid restriction, daily weight Chest x-ray - pulmonary edema and bilateral pleural effusions CT chest - pending, (to further evaluate bilateral pleural effusions) Troponin - 0.06, chronically elevated Continue home meds Labs in a.m. (2) Acute exacerbation of CHF (congestive heart failure) Current visit: No Status: Acute Acute exacerbation of diastolic CHF with LVEF of 65% - with overload and pulmonary edema causing shortness of breath IV Lasix given BN peptide greater than 5000 Strict I's and O's, fluid restriction, daily weight Continue home meds Qualifiers: Congestive heart failure type: diastolic Qualified Code(s): I50.33 - Acute on chronic diastolic (congestive) heart failure (3) Anemia in chronic kidney disease (CKD) Current visit: No Status: Chronic Anemia of chronic kidney disease, H&H stable and at baseline Qualifiers: Chronic kidney disease stage: on chronic dialysis Qualified Code(s): N18.6 - End stage renal disease; D63.1 - Anemia in chronic kidney disease; Z99.2 - Dependence on renal dialysis (4) Hypertension Current visit: No Status: Chronic Secondary to end-stage renal disease, uncontrolled, continue home meds, monitor Qualifiers: Hypertension type: essential hypertension Qualified Code(s): I10 - Essential (primary) hypertension (5) Pancytopenia Current visit: Yes Status: Chronic Consult oncology (6) History of aortic valve replacement Current visit: No Status: Chronic (7) DVT prophylaxis Current visit: No Status: Acute Continue heparin subcutaneous Internal Medicine - H&P: HPI Chief complaint: Shortness of breath Admitted From: Emergency Dept History of present illness: Ms. Andrew is a 86 year old female with past medical history of CHF, coronary artery disease, end-stage renal disease on hemodialysis, hypertension, hyperlipidemia, valvular heart disease, chronic anemia and arthritis. Patient presents to the ED with complaints of shortness of breath was initially for about one week ago. Symptoms gradually worsened. Family brought her into the ER today because of worsening shortness of breath last night. Symptoms are worse with exertion and sometimes present even at rest. Family states patient has been sleeping up in a chair over the past one week. No alleviating factors. Patient is due for hemodialysis today. Family believes that she needs fluid to be drained. Patient does also had complaints of abdominal swelling and bloating. On examination patient is awake and alert. She is in mild distress and does seem to have some difficulty breathing. Family provides most of the history. Patient is able to verbalize answers some questions. Nephrology has evaluated patient and recommended dialysis immediately. Patient denies chest pain, denies palpitations denies vomiting, denies diarrhea, or abdominal pain. No other associated symptoms. Initial evaluation in the ED reveals pulmonary edema. She has been given 1 dose of IV Lasix. Troponin is elevated at 0.06 but this is chronic. Patient is being admitted to overload requiring dialysis. Patient and family have been explained about her condition and plan of care. They understood and agreed. No unanswered questions. CODE STATUS full code. Past Med Surg Social Fam HX - Past Medical History Medical history: arthritis, CHF, coronary artery disease, dialysis, hyperlipidemia, hypertension, myocardial infarction, renal disease, valvular heart disease Psychiatric history: no psych history - Past Surgical History Surgical History: angioplasty/stent, appendectomy, cholecystectomy, heart valve replacement, herniorrhaphy - Social History Smoking Status: Never smoker Smokeless Tobacco Status: No Alcohol use: none Drug use: none - Family History Father Living Status: Brother Living Status: Sister Living Status: Mother Living Status: Hx Family Cardiac Disorders: Yes Internal Medicine - H&P: Meds Furosemide [Lasix] 20 mg PO DAILY 05/05/15 [History] Levothyroxine [Synthroid] 50 mcg PO QAM 05/05/15 [History] Multivitamin [Multivitamins] 1 each PO DAILY 05/05/15 [History] Ropinirole HCl [Requip] 1 mg PO HS 05/05/15 [History] Sodium Bicarbonate 1,300 mg PO BID 05/05/15 [History] Lisinopril 30 mg PO BID 09/17/16 [History] cloNIDine HCl [CloNIDine HCl] 0.1 mg PO BID 09/17/16 [History] Cinacalcet [Sensipar] 30 mg PO DAILY 03/07/17 [History] Labetalol HCl 200 mg PO BID 03/07/17 [History] Pantoprazole Sodium [Protonix] 40 mg PO DAILY 03/07/17 [History] amLODIPine [Norvasc] 5 mg PO BID 03/07/17 [History] Labetalol [Trandate] 100 mg PO BID #60 tablet 03/09/17 [Rx] Allergies nystatin Allergy (Mild, Verified 03/07/17 16:42) See Comments Shortly after application, pt complained of burning and redness at areas of application. quinine Allergy (Verified 03/07/17 16:42) Rash Tetanus Vaccines and Toxoid [Tetanus Vaccines & Toxoid] Adverse Reaction ( Unknown, Verified 03/07/17 16:42) See Comments Pt unsure. adhesive tape Adverse Reaction (Verified 03/07/17 16:42) Blister Sulfa (Sulfonamide Antibiotics) Adverse Reaction (Verified 03/07/17 16:42) See Comments pt. unsure All Systems PM: A 10-system review of systems was performed and is negative for pertinent findings except as documented above in the HPI. - Constitutional Constitutional: fatigue, weakness, no fever(s) - EENT Eyes: no blurry vision - Cardiovascular Cardiovascular ROS IM: dyspnea, dyspnea on exertion, edema, orthopnea, no chest pain, no syncope - Respiratory Respiratory: dyspnea, dyspnea on exertion, chest congestion, no cough, no wheezing - Gastrointestinal Gastrointestinal: abdominal pain, bloating, no cramping, no diarrhea, no melena , no nausea, no vomiting - Genitourinary Genitourinary: no dysuria - Musculoskeletal Musculoskeletal ROS IM: no arthralgias - Neurological Neurological ROS: no abnormal gait, no abnormal speech, no dizziness, no loss of vision, no numbness - Constitutional Vitals: Temp Pulse Resp BP Pulse Ox 97.5 F L 69 22 192/65 92 04/07/17 07:04/07/17 07:17 04/07/17 07:17 04/07/17 07:04/07/17 07:38 General appearance: Present: mild distress, A&O X 3, answers questions appropriately Exam: Ill appearing, generalized weakness - Head Head exam: Present: atraumatic - Eye Eye exam: Present: EOMI - Neck Neck exam general surgery: Present: supple - Respiratory Respiratory exam: Present: accessory muscle use, rales (Bilateral), tachypnea. Absent: rhonchi, wheezes - Cardiovascular Cardiovascular exam: Present: +S1, +S2, systolic murmur. Absent: rubs - GI/Abdominal GI/Abdominal exam: Present: distended (Mild ascites), soft, no peritoneal signs. Absent: firm, guarding, rebound, rigid, tenderness - Extremities Exam Extremities exam: Present: pedal edema (Mild bilateral), radial pulses palpable and symetrical. Absent: cyanotic - Neurological Exam Neurological exam: Present: alert, oriented X3, no focal deficits Internal Med - H&P Results - Labs CBC & Chem 7: 04/07/17 03:46 04/07/17 03:46
[2017-04-07] MEDS ORDERED: *HR* Morphine 2 MG/ML SYRINGE IVP ONE (08:50)
[2017-04-07] MEDS ORDERED: Famotidine 20 MG TABLET PO SCH ×2 (09:00→10:23)
[2017-04-07 09:43] LABS: INR 1.2; Prothrombin Time 12.5 Seconds (9.4-12.1)
[2017-04-07 12:12] LABS: Hepatitis B Surface Antigen Nonreactive (Nonreactive)
--- NOTE | 2017-04-07 12:32 | Electrocardiograph Report ---
[address] [place] [address] Test Date: 2017-04-07 Pat Name: Mariela Andrew Department: 105 Room: 2A31 Gender: F Coat Maker: : 1930 Requested By: Mingo Wiley Order Number: [id number] Reading MD: Grant Cruz MD Measurements Intervals [place] Rate: 56 P: 49 LA: 194 QRS: -3 QRSD: 114 T: 12 QT: 447 QTc: 439 Interpretive Statements SINUS BRADYCARDIA INFERIOR MYOCARDIAL INFARCTION, PROBABLY OLD ANTEROSEPTAL MYOCARDIAL INFARCTION, OF INDETERMINATE AGE Electronically Signed On 04-07-2017 12:30:30 EDT by Grant Cruz MD
[2017-04-07] MEDS ORDERED: 0.9 % Sodium Chloride 2,000 ML ONE (12:47)
[2017-04-07] MEDS: Lisinopril 20 MG TABLET PO SCH ×2 (13:01→21:30)
[2017-04-07] MEDS: Furosemide 20 MG TABLET PO SCH (13:01)
[2017-04-07] MEDS: cloNIDine HCl 0.1 MG TABLET PO SCH ×2 (13:01→21:30)
[2017-04-07] MEDS: Famotidine 20 MG TABLET PO SCH (13:02)
[2017-04-07] MEDS: amLODIPine 5 MG TABLET PO SCH ×2 (13:02→21:30)
[2017-04-07] MEDS: Multivit/Ca/Min/Fe/FA 1 TAB TABLET PO SCH (13:02)
[2017-04-07] MEDS: *HR* Heparin 5,000 UNIT/ML VIAL SQ SCH ×2 (13:04→17:09)
--- NOTE | 2017-04-07 20:05 | Oncology Inp Consult Note ---
Date of Encounter: 04/07/17 Time of Encounter: 20:04 - Data of Consult Patient: known to practice within the last 3 years Consult date: 04/07/17 Requesting Physician: Harjit Londono DO Primary Care Provider: Angel Mcelroy DO - Consult Narrative Reason for consult: Pancytopenia History of present illness: Ms. Andrew is a 86 year old woman seen in consultation regarding unexplained pancytopenia. She is established with the cancer center for previously diagnosed pancytopenia and also attributes to chronic liver disease and has seen Dr. Sandoval in the past. I have summarized patient's heme/onc background below based on Dr. Sandoval 's most recent office report from 06/24/15. HPI 84 yp female with med hx sig for CAD s/p stent placement, CKD on aranesp q 2wk, CHF, diverticulitis, hypertension, hypothyroidism, s/p aortic valve replacement last evaluated for anemia thrombocytopenia. She had seen DR Hickey in the past for low blod counts and did not want a BM bx then. She is on baby ASA, Plavix plt around 50k and has some upper ext bruising and occ nose bleeds. Hx fatigue, falls from joint and nerve problems. She had EGD and colonoscopy - polypectomy. No varices was mentioned. US abd 01/14 possible cirrhoisis ascitic fluid She had previous partial bowel resection for diverticulitis HAd cardiac valve replacement a year ago Increased bruising for years. CT 06/16 no cirrhosis, has mild splenomegaly. Stable adrenal nodule She has had episode of diarrhea. She ahd received procrit/darbepoetin recently. DEnies bleeding episodes, +skin bruising CT abd 06/16 mild splenomegaly Bruising upper ext, rt hand new otherwise no new symptoms Was in ER Rx with cipro for UTI--final UC is neagtive. BUN/Cr little worse, Hgb around 9gm, plt 59k, on baby ASA s/p abd hernia surgery by DR England in . 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 She is s/p Endoscopy/colonoscopy in . Hx inflammatory/Gouty arthritis as well. 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 Mild splenomegaly noted. HGB Stable to slight decline. ct EPO S/p abd surgery in . UC neg, she will d/c cipro, renal function noted s/p Procrit by nephrology q 2wkly, counts stable. Plt stable. Minor bleed incl bruising RT lower ext swelling BAkers cyst--shre will f/u with physician at [facility], should any intervention planned will plt transfuse depending on procedure., She wanted to defer BM bx, has not has not had one Patient is currently hospitalized for acute CHF exacerbation which is being managed supportively. She also has underlying end-stage renal disease for which is on dialysis 3 days a week Tuesday. Dialysis as per Dr. Gallardo was also following on consultation during this hospitalization. Oncology is consulted re: pancytopenia. Patient seen and examined at bedside. Chart reviewed for details of ongoing care by hospital team. Son (Sidney) was present at bedside during evaluation and provided additional information. Patient himself is somewhat of a poor historian and unable to give detailed history of a hematologic background. She is comfortable at time of evaluation in no evident distress. On reviewing her records, she has had some progressive cytopenias since we last saw her in office with worsening thrombocytopenia. CBC trend: 06/20/15 06/27/15 09/17/16 WBC 4.6 4.2 L Hgb 9.9 L 9.2 L 11.2 L Plt Count 85 L 59 L 03/09/17 04/07/17 04/08/17 WBC 3.1 L 2.2 L 2.7 L Hgb 8.8 L 8.5 L Plt Count 61 L Rest of past medical, surgical, family, social history detailed below and verified with patient today. Review of systems: 12 point review of systems performed with patient and positive findings noted in history of present illness. All other systems are negative: Physical exam: 04/07/17 15:43 Temperature 98.2 F Pulse Rate 65 Respiratory Rate 18 Blood Pressure 118/68 O2 Sat by Pulse Oximetry 99 Oxygen Flow Rate (LPM) 3 GENERAL: Alert and oriented, comfortable appearing. Mental Status: Affect appropriate for circumstances HEENT: Sclerae anicteric. No mucositis or thrush. No other oral or pharyngeal lesions or erythema. Skin: No rashes or petechiae. No evidence of skin malignancy Lymph nodes: No cervical, supraclavicular, axillary, or inguinal adenopathy. Lungs: Clear to auscultation bilaterally. Clear to percussion bilaterally. Cardiovascular: Regular rate and rhythm. No gallops, murmurs, or rubs. Abdomen: Soft, nontender; distended. Likely due to ascites. No organomegaly or masses palpable. Extremities: No edema. No calf swelling or tenderness. No joint deformity. Neurologic: Alert, normal gait; no focal weakness or sensory abnormalities. Results: 07/12/16 03/09/17 03/09/17 14:06 08:43 08:43 WBC Hgb Plt Count Neutrophils # Sodium Potassium Chloride Creatinine Calcium Iron 52 % Saturation 25 Ferritin 2302 H Vitamin B12 628 Folate 15.4 TSH 3.484 04/07/17 04/07/17 03:46 03:46 WBC 2.2 L Hgb 8.8 L Plt Count 56 L Neutrophils # 1.4 L Sodium 142 Potassium 4.2 Chloride 107 Creatinine 4.93 H Calcium 10.1 Iron % Saturation Ferritin Vitamin B12 Folate TSH Radiographic studies: I personally reviewed and interpreted patient's most recent imaging studies dated 04/07/17. I discussed the findings with the patient today. Chest X-Ray 04/07/17 02:24 IMPRESSION: Cardiomegaly with mild pulmonary edema pattern and bilateral pleural effusions has not significantly changed from the previous chest x-ray. D/ / Jareth Parker MD / Jareth Parker MD Interpreting Provider: Jareth Parker MD Chest CT 04/07/17 10:03 IMPRESSION: 1. Large bilateral pleural effusions. 2. Otherwise, no acute abnormalities are seen in the chest. D/ : / 04/07/2017 13:31:14 Darshan Trimble MD / earnold Interpreting Provider: Darshan Trimble MD Impression/recommendations: Unexplained pancyopenia: I discussed with patient and her son today diagnostic considerations for her pancytopenia including hematinic deficiencies, hemolysis, chronic liver disease , chronic infection, chronic kidney disease, autoimmune/rheumatoid disorders, hypothyroidism, and primary hematologic disorder. Based on her liver disease history, my #1 suspicion is chronic liver disease including hypersplenism as etiology for her cytopenias. Given her advanced age, consideration for a primary hematologic disorder such as myelodysplastic syndrome is very reasonable. Recommend: Iron panel, ferritin, B12, folate, MMA, TSH, T4, JENNIE, LDH, haptoglobin, direct Ashleigh test, coagulation panel. Liver/spleen ultrasound for evaluation of reported history of chronic liver disease. I do not have any recent liver imaging. Abdominal imaging to look for organomegaly or lymphadenopathy that may suggest the primary hematolymphoid disorders including malignancy. If cirrhosis as confirmed on repeat abdominal imaging, she will likely need GI evaluation with upper and lower endoscopy to evaluate portal hypertension and related complications as well as occult bleeding. Regarding her cytopenias, fortunately this is mild severity and has not required transfusion recently. Recommend supportive management including: RBC transition to maintain hemoglobin of 7 or greater. The transition to maintain platelet count of 20,000 or greater is no evidence of bleeding. If actively bleeding, platelet count of 50,000 or greater would be more ideal. If leukopenia becomes problematic, she may benefit from growth factor support. None indicated presently. Further recommendations based on pending studies. We'll follow patient peripherally with you. Please call with interval questions. Thank you for your excellent ongoing care for allowing us to see her while in- house. This report was created using voice recognition software and may contain errors. It was signed but not edited to expedite communication. Corrections will be made in a separate addendum as needed. Past Med Surg Social Fam HX - Past Medical History Medical history: arthritis, CHF, coronary artery disease, dialysis, hyperlipidemia, hypertension, myocardial infarction, renal disease, valvular heart disease Psychiatric history: no psych history - Past Surgical History Surgical History: angioplasty/stent, appendectomy, cholecystectomy, heart valve replacement, herniorrhaphy - Social History Smoking Status: Never smoker Smokeless Tobacco Status: No Alcohol use: none Drug use: none - Family History Father Living Status: Brother Living Status: Sister Living Status: Mother Living Status: Hx Family Cardiac Disorders: Yes Medications and Allergies Furosemide [Lasix] 20 mg PO DAILY 05/05/15 [History] Levothyroxine [Synthroid] 50 mcg PO QAM 05/05/15 [History] Multivitamin [Multivitamins] 1 tab PO DAILY 05/05/15 [History] Ropinirole HCl [Requip] 1 mg PO HS 05/05/15 [History] Sodium Bicarbonate 1,300 mg PO BID 05/05/15 [History] Lisinopril 30 mg PO BID 09/17/16 [History] cloNIDine HCl [CloNIDine HCl] 0.1 mg PO BID 09/17/16 [History] Cinacalcet [Sensipar] 30 mg PO DAILY 03/07/17 [History] Labetalol HCl 200 mg PO BID 03/07/17 [History] Pantoprazole Sodium [Protonix] 40 mg PO DAILY 03/07/17 [History] amLODIPine [Norvasc] 5 mg PO BID 03/07/17 [History] Labetalol [Trandate] 100 mg PO BID #60 tablet 03/09/17 [Rx] Allergies nystatin Allergy (Mild, Verified 03/07/17 16:42) See Comments Shortly after application, pt complained of burning and redness at areas of application. quinine Allergy (Verified 03/07/17 16:42) Rash Tetanus Vaccines and Toxoid [Tetanus Vaccines & Toxoid] Adverse Reaction ( Unknown, Verified 03/07/17 16:42) See Comments Pt unsure. adhesive tape Adverse Reaction (Verified 03/07/17 16:42) Blister Sulfa (Sulfonamide Antibiotics) Adverse Reaction (Verified 03/07/17 16:42) See Comments pt. unsure Oncology - Exam - Constitutional Vitals: Temp Pulse Resp BP Pulse Ox 98.2 F 65 18 118/68 99 04/07/17 15:43 04/07/17 15:43 04/07/17 15:43 04/07/17 15:43 04/07/17 15:43 Oncology - Results - Labs Labs: Cardiac Enzymes 04/07/17 04/07/17 Range/Units 09:05 13:20 Troponin I 0.07 H* 0.08 H* (0-0.03) ng/mL Consult Discharge Plan - Plan Referrals: Angel Mcelroy DO [Primary Care Provider] - 04/14/17 11:30 am ()
[2017-04-07] MEDS: rOPINIRole 1 MG TABLET PO SCH (21:30)
[2017-04-08 05:11] LABS: Basophils % 0.4 %; Segmented Neutrophils % 54.1 %
[2017-04-08 05:13] LABS: Eosinophils % 1.5 %; Hematocrit 26.7 % (35.3-44.9); Hemoglobin 8.5 g/dL (11.5-15.4); Immature Granulocytes % 0.7 % (0-4); Immature Platelets 2.8 % (1.1-6.1); Lymphocytes # 0.9 K/mcL (0.6-4.6); Lymphocytes % 31.9 %; Mean Corpuscular HGB Conc 31.8 g/dL (31.6-35.5); Mean Corpuscular Volume 94.3 fL (83.0-100.0); Monocytes # 0.3 K/mcL (0.0-1.3); Monocytes % 11.4 %; Neutrophils # 1.5 K/mcL (1.6-8.9); Red Blood Count 2.83 M/mcL (3.82-4.97); Red Cell Distribution Width 15.3 % (11.5-14.5)
[2017-04-08 05:17] LABS: Platelet Count 61 K/mcL (140-400)
[2017-04-08 05:24] LABS: Albumin 2.9 g/dL (3.5-5.0); Albumin/Globulin Ratio 1.3 (1.1-2.2); Bilirubin,Total 0.8 mg/dL (0.2-1.2); Calcium 9.2 mg/dL (8.6-10.8); Globulin 2.3 g/dL (2.4-3.5); Potassium 4.1 mEq/L (3.5-4.5); Total Protein 5.2 g/dL (6.0-8.3)
[2017-04-08] MEDS: *HR* Heparin 5,000 UNIT/ML VIAL SQ SCH (06:09)
[2017-04-08] MEDS: amLODIPine 5 MG TABLET PO SCH ×2 (09:14→19:58)
[2017-04-08] MEDS: Lisinopril 20 MG TABLET PO SCH ×2 (09:15→19:59)
[2017-04-08] MEDS: Famotidine 20 MG TABLET PO SCH (09:15)
[2017-04-08] MEDS: cloNIDine HCl 0.1 MG TABLET PO SCH ×2 (09:15→19:58)
[2017-04-08] MEDS: Multivit/Ca/Min/Fe/FA 1 TAB TABLET PO SCH (09:15)
[2017-04-08] MEDS: Furosemide 20 MG TABLET PO SCH (09:15)
[2017-04-08] MEDS ORDERED: 0.9 % Sodium Chloride 250 ML IVC PRN (10:06)
[2017-04-08] MEDS ORDERED: *HR* Heparin 10,000 UNIT/10 ML VIAL IV PRN (10:06)
[2017-04-08] MEDS ORDERED: 0.9 % Sodium Chloride 1,000 ML PRIME SCH (10:15)
--- NOTE | 2017-04-08 10:36 | Internal Med Progress Note ---
<Ta Gill - Last Filed: 04/08/17 18:16> Date of Encounter: 04/08/17 Time of Encounter: 10:00 - Assessment and plan (1) Pleural effusion, bilateral Current Visit: Yes Status: Acute Assessment and plan: Needs left thorocentesis based on CT Chest and lateral decubitus films. Anticipate thoracentesis today, will obtain consistent. Patient and daughter in agreement with having procedure done. (2) ESRD (end stage renal disease) on dialysis Current Visit: Yes Status: Chronic Assessment and plan: Continue Hemodialysis Tuesday, , Tuesday. Nephrology following (3) Acute exacerbation of CHF (congestive heart failure) Current Visit: Yes Status: Acute Assessment and plan: BNP greater than 5000. Will perform thoracentesis today. Continue HD and Lasix. Qualifiers: Congestive heart failure type: diastolic Qualified Code(s): I50.33 - Acute on chronic diastolic (congestive) heart failure (4) Benign hypertension with end-stage renal disease Current Visit: No Status: Acute (5) Anemia in chronic kidney disease (CKD) Current Visit: Yes Status: Chronic Qualifiers: Chronic kidney disease stage: on chronic dialysis Qualified Code(s): N18.6 - End stage renal disease; D63.1 - Anemia in chronic kidney disease; Z99.2 - Dependence on renal dialysis (6) Pancytopenia Current Visit: Yes Status: Chronic Assessment and plan: Onc consulted. Continue to monitor. 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 Mild splenomegaly noted. HGB Stable to slight decline. 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 Given her advanced age, consideration for a primary hematologic disorder such as myelodysplastic syndrome is very reasonable. Recommend: Iron panel, ferritin, B12, folate, MMA, TSH, T4, JENNIE, LDH, haptoglobin, direct Ashleigh test, coagulation panel. Liver/spleen ultrasound for evaluation of reported history of chronic liver disease. I do not have any recent liver imaging. Abdominal imaging to look for organomegaly or lymphadenopathy that may suggest the primary hematolymphoid disorders including malignancy. If cirrhosis as confirmed on repeat abdominal imaging, she will likely need GI evaluation with upper and lower endoscopy to evaluate portal hypertension and related complications as well as occult bleeding. Regarding her cytopenias, fortunately this is mild severity and has not required transfusion recently. Recommend supportive management including: RBC transition to maintain hemoglobin of 7 or greater. The transition to maintain platelet count of 20,000 or greater is no evidence of bleeding. If actively bleeding, platelet count of 50,000 or greater would be more ideal. If leukopenia becomes problematic, she may benefit from growth factor support. None indicated presently. Further recommendations based on pending studies. (7) DVT prophylaxis Current Visit: No Status: Acute Assessment and plan: Cutaneous heparin. Resume following thoracentesis. Patient seen and examined. Plan discussed with and agreed upon with Dr. Cifuentes - Subjective Interval history: Pt seen and examined. Pt reports SOB and denies any other c/o. Daughter is at bedside. Plan thoracentesis today. - Constitutional Vitals: Temp Pulse Resp BP Pulse Ox 98.4 F 65 18 182/62 97 04/08/17 08:00 04/08/17 08:00 04/08/17 08:00 04/08/17 08:00 04/08/17 08:00 General appearance: Present: mild distress, A&O X 3, obese, answers questions appropriately - Head Head exam: Present: atraumatic, normocephalic - Eye Eye exam: Present: PERRL, conjuntiva pink, sclera anicteric Pupils: Present: PERRL - ENT ENT exam: Present: mucous membranes moist, normal oropharynx - Neck Neck exam general surgery: Present: supple, trachea midline. Absent: lymphadenopathy - Respiratory Respiratory exam: Present: decreased breath sounds. Absent: accessory muscle use, CTAB, rales, rhonchi, wheezes Additional comments: Bilateral bases - Cardiovascular Cardiovascular exam: Present: RRR, +S1, +S2. Absent: diastolic murmur, gallop, rubs, systolic murmur - GI/Abdominal GI/Abdominal exam: Present: normal bowel sounds, soft, no peritoneal signs. Absent: distended, tenderness - Extremities Exam Extremities exam: Present: warm, radial pulses palpable and symetrical. Absent : calf tenderness, cyanotic, pedal edema - Back Exam Back exam: Absent: muscle spasm, tenderness - Neurological Exam Neurological exam: Present: CN II-XII intact, oriented X3, no focal deficits. Absent: pronater drift, facial droop, speech deficit - Psychiatric Psychiatric exam: Present: normal affect, normal mood - Skin Skin exam: Present: dry, intact, pallor, warm. Absent: rash Internal Medicine: Result - Labs CBC & Chem 7: 04/08/17 04:57 04/08/17 04:57 Labs: Short CBC 04/08/17 Range/Units 04:57 WBC 2.7 L (4.3-11.1) K/mcL Hgb 8.5 L (11.5-15.4) g/dL Hct 26.7 L (35.3-44.9) % Plt Count 61 L (140-400) K/mcL Neutrophils # 1.5 L (1.6-8.9) K/mcL BMP 04/08/17 04:57 Sodium 140 Potassium 4.1 Chloride 106 Carbon Dioxide 31 H BUN 20 Creatinine 4.60 H Glucose 84 Calcium 9.2 Cardiac Enzymes 04/07/17 04/07/17 Range/Units 13:20 19:57 Troponin I 0.08 H* 0.10 H* (0-0.03) ng/mL Liver Function 04/08/17 Range/Units 04:57 Total Bilirubin 0.8 (0.2-1.2) mg/dL AST 17 (5-34) Units/L ALT 9 (0-55) Units/L Alkaline Phosphatase 55 (38-126) Units/L Albumin 2.9 L (3.5-5.0) g/dL - ABG Interpretation ABG results: PT/INR, D-dimer PT 12.5 Seconds (9.4-12.1) H 04/07/17 09:05 - Impressions Impressions Chest CT 04/07/17 10:03 IMPRESSION: 1. Large bilateral pleural effusions. 2. Otherwise, no acute abnormalities are seen in the chest. D/ / 04/07/2017 13:31:14 Darshan Trimble MD / [facility] Interpreting Provider: Darshan Trimble MD Consult Discharge Plan - Plan Referrals: Angel Mcelroy DO [Primary Care Provider] - 04/14/17 11:30 am () <Lv Cifuentes - Last Filed: 04/08/17 20:28> Date of Encounter: 07/07/17 - Constitutional Vitals: Temp Pulse Resp BP Pulse Ox 98.1 F 73 15 169/52 94 04/08/17 19:50 04/08/17 19:50 04/08/17 19:50 04/08/17 19:50 04/08/17 19:50 Internal Medicine: Result - Labs CBC & Chem 7: 04/08/17 04:57 04/08/17 04:57 Labs: Short CBC 04/08/17 Range/Units 04:57 WBC 2.7 L (4.3-11.1) K/mcL Hgb 8.5 L (11.5-15.4) g/dL Hct 26.7 L (35.3-44.9) % Plt Count 61 L (140-400) K/mcL Neutrophils # 1.5 L (1.6-8.9) K/mcL BMP 04/08/17 04:57 Sodium 140 Potassium 4.1 Chloride 106 Carbon Dioxide 31 H BUN 20 Creatinine 4.60 H Glucose 84 Calcium 9.2 Cardiac Enzymes 04/07/17 Range/Units 19:57 Troponin I 0.10 H* (0-0.03) ng/mL Liver Function 04/08/17 Range/Units 04:57 Total Bilirubin 0.8 (0.2-1.2) mg/dL AST 17 (5-34) Units/L ALT 9 (0-55) Units/L Alkaline Phosphatase 55 (38-126) Units/L Albumin 2.9 L (3.5-5.0) g/dL - ABG Interpretation ABG results: PT/INR, D-dimer PT 12.5 Seconds (9.4-12.1) H 04/07/17 09:05 - Impressions Impressions Chest X-Ray 04/08/17 14:56 IMPRESSION: There appear to be layering bilateral pleural effusions D/ / Darshan Trimble MD / Darshan Trimble MD Interpreting Provider: Darshan Trimble MD Chest X-Ray 04/08/17 18:00 IMPRESSION: Decreasing size bilateral pleural effusions following thoracentesis. No evidence of pneumothorax. D/ /08/2017 18:47:31 Jacobo Willis MD / tiffany Interpreting Provider: Jacboo Willis MD - Attending Attestation I examined this patient and my medical decision-making was reviewed with the Resident Physician, Dr Gill. I agree with the documented findings, disposition and treatment plan as described except to the extent set forth below. atient presented with worsening sshortness of breath. On exam lung sounds are decreased at both bases, worse at the left base. Plan: Continue ESRD, fluid management with dialysis. C Consult nephrology. diagnostic and therapeutic thoracentesis.
--- NOTE | 2017-04-08 10:43 | Nephrology Progress Note ---
Date of Encounter: 04/08/17 Time of Encounter: 10:10 - Assessment and Plan (1) ESRD (end stage renal disease) on dialysis Current Visit: No Status: Chronic No HD today, will do tomorrow, keeping TTS schedule. Recommend left thorocentesis based on CT Chest. Patient and daughter in agreement with having procedure done. Subjective Interval history: Sitting up in chair. States not as SOB, but still feels like cannot catch breath at times. Daughter at bedside. Discussed pleural effeusions on Chest CT, that HD cannot remove that type of fluid. Recommending left thorocentesis. Patient and daighter in agreement to have procedure. Objective - Vital Signs Vital signs: Vital Signs Temp Pulse Resp BP Pulse Ox 04/08/17 08:00 98.4 F 65 18 182/62 97 04/08/17 05:09 98 F 64 16 175/62 96 04/07/17 23:25 98.2 F 62 15 176/57 98 04/07/17 21:01 98 F 79 17 172/51 97 04/07/17 15:43 98.2 F 65 18 118/68 99 04/07/17 13:02 166/57 04/07/17 12:58 97.5 F L 98 18 166/57 98 04/07/17 12:45 97.7 F 24 155/53 04/07/17 12:00 127/60 04/07/17 11:45 116/49 04/07/17 11:30 119/50 04/07/17 11:15 124/51 04/07/17 11:00 131/56 04/07/17 10:45 121/49 Intake and Output 04/07/17 04/08/17 04/08/17 23:59 07:59 15:59 Intake Total 240 / 240 240 / 240 Output Total 0 / 0 Balance 240 / 240 240 / 240 Intake: Oral 240 / 240 240 / 240 Output: Urine 0 / 0 Other: Meal Dinner Breakfast Percent of Meal Consumed 25% 25% Stool Size Small Stool Consistency formed Stool Characteristics Normal for Patient Stool Color Brown # Bowel Movement Diapers 1 Weight 74.78 kg Blood Glucose* 95 83 Patient Weight 04/08/17 23:59 Weight 74.78 kg - General Appearance General appearance: Present: well-developed, well-nourished, appears started age EENT: Present: mucous membranes moist Neck: Present: no JVD Additional Comments: diminished Cardiology: Present: no edema, regular rate, regular rhythm Additional Comments: 2/6 systolic murmur Gastrointestinal: Present: normoactive bowel sounds, no tenderness Integumentary: Present: warm and dry Neurologic: Present: alert and oriented x3 Psychiatric: Present: mood/affect appropriate, cooperative - Lab 04/08/17 04:57 04/08/17 04:57 Most recent lab results Calcium 9.2 mg/dL (8.6-10.8) 04/08/17 04:57 Consult Discharge Plan - Plan Referrals: Angel Mcelroy DO [Primary Care Provider] - 04/14/17 11:30 am ()
--- NOTE | 2017-04-08 18:15 | Procedure Note ---
Date of procedure: 04/08/17 (174) Pre-op diagnosis: Pleural Effusion, Left Post-op diagnosis: same Procedure: Left Thoracentesis A time-out was completed verifying correct patient, procedure, site, positioning , and special equipment if applicable. The patients left side was prepped and draped in a sterile manner after the appropriate infiltration level was confirmed by ultrasound. 1% lidocaine was used anesthetize the surrounding skin. A finder needle was then used to locate fluid and clear yellow fluid was obtained. A 10-blade scalpel used to make the incision. The thoracentesis catheter was then threaded without difficulty. The patient had 825cc of clear yellow fluid removed. Attending/ Dr. Lenz was present for the entire procedure. A post-procedure chest x-ray was ordered and the fluid will be sent for several studies. Estimated Blood Loss: 1cc The patient tolerated the procedure well and there were no complications. ITS Impressions Chest CT 04/07/17 10:03 IMPRESSION: 1. Large bilateral pleural effusions. 2. Otherwise, no acute abnormalities are seen in the chest. D/ /07/2017 13:31:14 Darshan Trimble MD / [facility]old Interpreting Provider: Darshan Trimble MD Chest X-Ray 04/08/17 18:00 IMPRESSION: Decreasing size bilateral pleural effusions following thoracentesis. No evidence of pneumothorax. D/ 04/08/2017 18:47:31 [facility] Inter[facility] Provider: Jacobo Willis MD Anesthesia: local Surgeon: Ta Gill Director Of Cath Lab: Hugo Lenz (Attending) Estimated blood loss (cc): 1 Urine output (cc): 825 (Pleural fluid) Condition: stable Disposition: no change
[2017-04-08 18:36] LABS: RBC,Pleural Fluid 0.007 M/mcL
[2017-04-08 18:44] LABS: Amylase,Pleural Fluid 26 Units/L (No Ref Range); Glucose,Pleural Fluid 98 mg/dL (No Ref Range); LDH,Pleural Fluid 356 Units/L (No Ref Range); Triglycerides, Pleural Fluid 29 mg/dL (No Ref Range)
[2017-04-08 18:45] LABS: Total Protein,Pleural Fluid 2.1 g/dL (No Ref Range)
[2017-04-08 19:50] LABS: Appearance of Pleural Fl Clear (Clear)
[2017-04-08] MEDS: rOPINIRole 1 MG TABLET PO SCH (19:59)
[2017-04-09 06:49] LABS: Basophils % 0.7 %; Eosinophils # 0.1 K/mcL (0.0-0.6); Eosinophils % 1.9 %; Hematocrit 29.8 % (35.3-44.9); Hemoglobin 9.4 g/dL (11.5-15.4); Immature Granulocytes % 1.1 % (0-4); Immature Platelets 2.5 % (1.1-6.1); Lymphocytes # 0.8 K/mcL (0.6-4.6); Lymphocytes % 27.8 %; Mean Corpuscular HGB Conc 31.5 g/dL (31.6-35.5); Mean Corpuscular Hemoglobin 29.6 pg (28.0-33.3); Mean Corpuscular Volume 93.7 fL (83.0-100.0); Monocytes # 0.3 K/mcL (0.0-1.3); Monocytes % 10.7 %; Neutrophils # 1.6 K/mcL (1.6-8.9); Red Blood Count 3.18 M/mcL (3.82-4.97); Red Cell Distribution Width 15.3 % (11.5-14.5); Segmented Neutrophils % 57.8 %
[2017-04-09 06:51] LABS: Platelet Count 63 K/mcL (140-400)
[2017-04-09 07:04] LABS: Albumin/Globulin Ratio 1.2 (1.1-2.2); Bilirubin,Total 0.8 mg/dL (0.2-1.2); Calcium 9.3 mg/dL (8.6-10.8); Globulin 2.5 g/dL (2.4-3.5)
[2017-04-09 07:05] LABS: Albumin 2.9 g/dL (3.5-5.0); Total Protein 5.4 g/dL (6.0-8.3)
[2017-04-09] MEDS ORDERED: 0.9 % Sodium Chloride 250 ML IVC PRN (08:14)
--- NOTE | 2017-04-09 08:14 | Nephrology Progress Note ---
Date of Encounter: 04/09/17 Time of Encounter: 08:13 - Assessment and Plan (1) ESRD (end stage renal disease) on dialysis Current Visit: Yes Status: Chronic (2) Pancytopenia Current Visit: Yes Status: Chronic (3) History of aortic valve replacement Current Visit: No Status: Chronic (4) CAD (coronary artery disease) Current Visit: No Status: Acute Qualifiers: Coronary Disease-Associated Artery/Lesion type: [place] artery [place] vs. transplanted heart: [place] heart Associated angina: without angina Qualified Code(s): I25.10 - Atherosclerotic heart disease of [place] coronary artery without angina pectoris (5) Acute exacerbation of CHF (congestive heart failure) Current Visit: Yes Status: Acute Qualifiers: Congestive heart failure type: diastolic Qualified Code(s): I50.33 - Acute on chronic diastolic (congestive) heart failure Subjective Interval history: Patient is feeling better. She status post left thoracentesis yesterday. It 125 mL of fluid were removed. Blood pressure is improving. She is scheduled for her usual dialysis today. Objective - Vital Signs Vital signs: Vital Signs Temp Pulse Resp BP Pulse Ox 04/09/17 05:00 98.5 F 64 16 162/52 93 04/08/17 23:42 98.1 F 62 15 131/66 94 04/08/17 19:50 98.1 F 73 15 169/52 94 04/08/17 15:08 98.3 F 91 18 169/64 68 04/08/17 11:50 98 04/08/17 10:48 98.1 F 88 20 168/62 98 04/08/17 09:22 95 Intake and Output 04/08/17 04/09/17 04/09/17 23:59 07:59 15:59 Intake Total 0 / 0 Balance 0 / 0 Intake: Oral 0 / 0 Other: Weight 68.3 kg Blood Glucose* 153 96 - General Appearance Exam: Patient is sitting up in a chair eating breakfast. She is alert oriented and in no acute distress. Lungs diminished breath sounds in the bases. Heart regular rate and rhythm with a 2/6 talk ejection murmur. Abdomen is benign. There is no lower extremity swelling. There is a tunnel dialysis catheter in the left chest. - Lab 04/09/17 06:10 04/09/17 06:10 Most recent lab results Calcium 9.3 mg/dL (8.6-10.8) 07/08/17 06:10 Consult Discharge Plan - Plan Referrals: Angel Mcelroy DO [Primary Care Provider] - 04/14/17 11:30 am ()
[2017-04-09] MEDS ORDERED: *HR* Heparin 10,000 UNIT/10 ML VIAL IV PRN (08:29)
[2017-04-09] MEDS ORDERED: 0.9 % Sodium Chloride 2,000 ML ONE (08:57)
[2017-04-09] MEDS: Famotidine 20 MG TABLET PO SCH (09:41)
[2017-04-09] MEDS: Multivit/Ca/Min/Fe/FA 1 TAB TABLET PO SCH (09:41)
[2017-04-09] MEDS ORDERED: GI Cocktail 40 ML EACH PO ONE (14:40)
--- NOTE | 2017-04-09 15:41 | Internal Med Progress Note ---
<Ruperto Lazaro - Last Filed: 04/09/17 15:59> Date of Encounter: 04/09/17 Time of Encounter: 14:40 - Assessment and plan (1) Acute hypoxemic respiratory failure Current Visit: Yes Status: Acute Assessment and plan: secodondary to volume overload, pulmonary edema and chronic effusions. She is s/p thoracentesis. Patient has improved. Now on room air. (2) ESRD (end stage renal disease) on dialysis Current Visit: Yes Status: Chronic Assessment and plan: Management per Nephrology. T/R/S dialysis. PAtient had dialysis today. (3) Acute exacerbation of CHF (congestive heart failure) Current Visit: Yes Status: Acute Assessment and plan: Patient has moderate diastolic dysfunction. additionally she has ESRD. Both of which are likely contributing to her Volume overload. Continue BP management and precipitating factors of Diastolic heart failure. Would not add aldactone at this time given her ESRD. Qualifiers: Congestive heart failure type: diastolic Qualified Code(s): I50.33 - Acute on chronic diastolic (congestive) heart failure (4) Anemia in chronic kidney disease (CKD) Current Visit: Yes Status: Chronic Assessment and plan: stable Qualifiers: Chronic kidney disease stage: on chronic dialysis Qualified Code(s): N18.6 - End stage renal disease; D63.1 - Anemia in chronic kidney disease; Z99.2 - Dependence on renal dialysis (5) Pancytopenia Current Visit: Yes Status: Chronic Assessment and plan: Chronic Oncology following. Work up still pending. appreciate their input. (6) Pleural effusion, bilateral Current Visit: Yes Status: Acute Assessment and plan: S/P left thoracentesis. Transudative. (7) Epigastric pain Current Visit: Yes Status: Acute Assessment and plan: likely dyspepsia given that she took all her medications this AM on an empty stomach. I will give her a GI cocktail and reassess. (8) Pulmonary edema Current Visit: Yes Status: Acute Assessment and plan: imroving clinically. Now on room air (9) Physical deconditioning Current Visit: Yes Status: Acute Assessment and plan: discussed consulting physical therapy. However patient declines at this time. family is present and in agreement. Patient has support at home and medical devices. (10) HTN (hypertension) Current Visit: Yes Status: Acute Assessment and plan: above goal. However BP meeds held for dialysis. If still elevated overnight will consider adjusting her regimen. PRN hydralazine ordered as well. (11) DVT prophylaxis Current Visit: Yes Status: Acute Assessment and plan: SQ heparin - Subjective Interval history: No major events overnight. Patient has just returned from dialysis. she states that she is feeling fatigues somewhat. She states that she did not eat and took all of her medications. She is complaining of some epigastric pain. She states that the severity is moderate and burning. She denies any other complaints or concerns at this time. - Constitutional Vitals: Temp Pulse Resp BP Pulse Ox 98.5 F 66 16 160/57 93 04/09/17 13:18 04/09/17 13:18 04/09/17 13:18 04/09/17 13:18 04/09/17 13:18 Exam: Gen.: This is a well-developed well-nourished 86-year-old female is alert and orientated to person place time and situation appears slightly members couple no acute distress at this time. HEENT: Eyes were cephalic atraumatic. Pupils equally round. Moist mucous membranes. Trachea is midline. The mass thyromegaly. Heart: Regular rate and rhythm. She does have a mild 2/6 systolic ejection murmur heard best at the right upper sternal border that does not radiate to the axillary the neck. No thrill with palpation of the precordium. No JVD. No carotid bruits. Normal capillary refill. Lungs: Clear to auscultation bilaterally. She does have some dullness and decreased breath sounds at the bases of the lungs bilaterally however this is mild. Abdomen: The abdomen is obese, soft, nondistended, she does have some mild tenderness to palpation in the epigastrium. No organomegaly. Musculoskeletal: Grossly normal for age no gross deformity noted. Extremities: There is no clubbing or cyanosis. Does have some mild pedal edema present. Integument: No rashes or lesions. Psych: Pleasant, normal affect, cooperates fully with the interview and exam. Internal Medicine: Result - Labs CBC & Chem 7: 04/09/17 06:10 04/09/17 06:10 Labs: Short CBC 04/09/17 Range/Units 06:10 WBC 2.7 L (4.3-11.1) K/mcL Hgb 9.4 L (11.5-15.4) g/dL Hct 29.8 L (35.3-44.9) % Plt Count 63 L (140-400) K/mcL Neutrophils # 1.6 (1.6-8.9) K/mcL BMP 04/09/17 06:10 Sodium 143 Potassium 4.0 Chloride 106 Carbon Dioxide 29 BUN 27 H Creatinine 6.02 H Glucose 93 Calcium 9.3 Liver Function 04/09/17 Range/Units 06:10 Total Bilirubin 0.8 (0.2-1.2) mg/dL AST 19 (5-34) Units/L ALT 9 (0-55) Units/L Alkaline Phosphatase 59 (38-126) Units/L Albumin 2.9 L (3.5-5.0) g/dL - ABG Interpretation ABG results: PT/INR, D-dimer PT 12.5 Seconds (9.4-12.1) H 04/07/17 09:05 - Impressions Impressions Chest X-Ray 04/08/17 14:56 IMPRESSION: There appear to be layering bilateral pleural effusions D/ / Darshan Trimble MD / Darshan Trimble MD Interpreting Provider: Darshan Trimble MD Chest X-Ray 04/08/17 18:00 IMPRESSION: Decreasing size bilateral pleural effusions following thoracentesis. No evidence of pneumothorax. D/ / 04/08/2017 18:47:31 Jacobo Willis MD / [facility] Interpreting Provider: Jacobo Willis MD Consult Discharge Plan - Plan Referrals: Angel Mcelroy DO [Primary Care Provider] - 04/14/17 11:30 am () <Lv Cifuentes - Last Filed: 04/09/17 19:03> Date of Encounter: 04/09/17 - Constitutional Vitals: Temp Pulse Resp BP Pulse Ox 98.6 F 63 16 180/57 94 04/09/17 15:55 04/09/17 15:55 04/09/17 15:55 04/09/17 15:55 04/09/17 15:55 Internal Medicine: Result - Labs CBC & Chem 7: 04/09/17 06:10 04/09/17 06:10 Labs: Short CBC 04/09/17 Range/Units 06:10 WBC 2.7 L (4.3-11.1) K/mcL Hgb 9.4 L (11.5-15.4) g/dL Hct 29.8 L (35.3-44.9) % Plt Count 63 L (140-400) K/mcL Neutrophils # 1.6 (1.6-8.9) K/mcL BMP 04/09/17 06:10 Sodium 143 Potassium 4.0 Chloride 106 Carbon Dioxide 29 BUN 27 H Creatinine 6.02 H Glucose 93 Calcium 9.3 Liver Function 04/09/17 Range/Units 06:10 Total Bilirubin 0.8 (0.2-1.2) mg/dL AST 19 (5-34) Units/L ALT 9 (0-55) Units/L Alkaline Phosphatase 59 (38-126) Units/L Albumin 2.9 L (3.5-5.0) g/dL - ABG Interpretation ABG results: PT/INR, D-dimer PT 12.5 Seconds (9.4-12.1) H 04/07/17 09:05 - Attending Attestation I examined this patient and my medical decision-making was reviewed with the Resident Physician, Dr. Lazaro. I agree with the documented findings, disposition and treatment plan as described. patient is status post thoracentesis yesterday. Her shortness of breath has improved. Lung exam reveals improved aeration at the left base. Plan:Hemodialysis today. Monitor clinically.possible discharge in the morning.
[2017-04-09] MEDS: Lisinopril 20 MG TABLET PO SCH ×2 (16:11→20:54)
[2017-04-09] MEDS: cloNIDine HCl 0.1 MG TABLET PO SCH ×2 (16:12→20:52)
[2017-04-09] MEDS: Furosemide 20 MG TABLET PO SCH (16:12)
[2017-04-09] MEDS: amLODIPine 5 MG TABLET PO SCH ×2 (16:12→20:52)
[2017-04-09] MEDS ORDERED: *HR* HYDROcodone/Acet 5/325 mg TABLET PO PRN (18:32)
[2017-04-09] MEDS: rOPINIRole 1 MG TABLET PO SCH (20:52)
[2017-04-10 03:52] LABS: Basophils % 0.7 %; Mean Corpuscular Volume 95.5 fL (83.0-100.0)
[2017-04-10 03:54] LABS: Eosinophils # 0.1 K/mcL (0.0-0.6); Hematocrit 29.9 % (35.3-44.9); Hemoglobin 9.2 g/dL (11.5-15.4); Immature Platelets 1.9 % (1.1-6.1); Lymphocytes % 34.8 %; Mean Corpuscular HGB Conc 30.8 g/dL (31.6-35.5); Mean Corpuscular Hemoglobin 29.4 pg (28.0-33.3); Monocytes # 0.4 K/mcL (0.0-1.3); Monocytes % 13.5 %; Neutrophils # 1.4 K/mcL (1.6-8.9); Red Blood Count 3.13 M/mcL (3.82-4.97); Red Cell Distribution Width 15.2 % (11.5-14.5)
[2017-04-10 04:01] LABS: Platelet Count 63 K/mcL (140-400)
[2017-04-10 04:04] LABS: Calcium 8.5 mg/dL (8.6-10.8); Potassium 3.9 mEq/L (3.5-4.5)
[2017-04-10] MEDS: Famotidine 20 MG TABLET PO SCH (06:21)
[2017-04-10] MEDS: cloNIDine HCl 0.1 MG TABLET PO SCH (09:36)
[2017-04-10] MEDS: amLODIPine 5 MG TABLET PO SCH (09:36)
[2017-04-10] MEDS: Furosemide 20 MG TABLET PO SCH (09:36)
[2017-04-10] MEDS: Multivit/Ca/Min/Fe/FA 1 TAB TABLET PO SCH (09:37)
[2017-04-10] MEDS: Lisinopril 20 MG TABLET PO SCH (09:37)
[2017-04-10 09:49] VITALS: BP 148/53
--- NOTE | 2017-04-10 11:24 | Discharge Summary ---
<Ruperto Lazaro - Last Filed: 04/10/17 11:19> Date of Encounter: 04/10/17 Time of Encounter: 11:20 - Discharge Diagnosis (1) Acute hypoxemic respiratory failure Status: Acute (2) ESRD (end stage renal disease) on dialysis Status: Chronic (3) Acute exacerbation of CHF (congestive heart failure) Status: Acute Qualifiers: Congestive heart failure type: diastolic Qualified Code(s): I50.33 - Acute on chronic diastolic (congestive) heart failure (4) Anemia in chronic kidney disease (CKD) Status: Chronic Qualifiers: Chronic kidney disease stage: on chronic dialysis Qualified Code(s): N18.6 - End stage renal disease; D63.1 - Anemia in chronic kidney disease; Z99.2 - Dependence on renal dialysis (5) Pancytopenia Status: Chronic (6) Pleural effusion, bilateral Status: Acute (7) Epigastric pain Status: Acute (8) Pulmonary edema Status: Acute (9) Physical deconditioning Status: Acute (10) HTN (hypertension) Status: Acute (11) DVT prophylaxis Status: Acute - Discharge Medications Prescriptions: LORazepam [Ativan] 0.5 mg PO BID PRN #10 tablet PRN Reason: Anxiety Home Medications: Furosemide [Lasix] 20 mg PO DAILY 05/05/15 [History] Levothyroxine [Synthroid] 50 mcg PO QAM 05/05/15 [History] Multivitamin [Multivitamins] 1 tab PO DAILY 05/05/15 [History] Ropinirole HCl [Requip] 1 mg PO HS 05/05/15 [History] Sodium Bicarbonate 1,300 mg PO BID 05/05/15 [History] Lisinopril 30 mg PO BID 09/17/16 [History] cloNIDine HCl [CloNIDine HCl] 0.1 mg PO BID 09/17/16 [History] Cinacalcet [Sensipar] 30 mg PO DAILY 03/07/17 [History] Labetalol HCl 200 mg PO BID 03/07/17 [History] Pantoprazole Sodium [Protonix] 40 mg PO DAILY 03/07/17 [History] amLODIPine [Norvasc] 5 mg PO BID 03/07/17 [History] Labetalol [Trandate] 100 mg PO BID #60 tablet 03/09/17 [Rx] LORazepam [Ativan] 0.5 mg PO BID PRN #10 tablet 04/10/17 [Rx] Allergies/Adverse Reactions: Allergies nystatin Allergy (Mild, Verified 03/07/17 16:42) See Comments Shortly after application, pt complained of burning and redness at areas of application. quinine Allergy (Verified 03/07/17 16:42) Rash Tetanus Vaccines and Toxoid [Tetanus Vaccines & Toxoid] Adverse Reaction ( Unknown, Verified 03/07/17 16:42) See Comments Pt unsure. adhesive tape Adverse Reaction (Verified 03/07/17 16:42) Blister Sulfa (Sulfonamide Antibiotics) Adverse Reaction (Verified 03/07/17 16:42) See Comments pt. unsure Date of admission: 04/07/17 07:22 Primary care physician: Angel Mcelroy DO Consults: 04/07/17 08:00 Consult to Dialysis [CONS] ONCE 04/07/17 08:35 Consult to Oncology [CONS] Routine Consulting Provider: [facility] Reason for Consult: PANCYTOPENIA Call Completed: No 04/08/17 08:00 Consult to Dialysis [CONS] ONCE 04/08/17 10:15 Consult to Dialysis [CONS] ONCE 04/09/17 08:15 Consult to Dialysis [CONS] ONCE Discharging clinician: Ruperto Lazaro Anticipated date of discharge: 04/10/17 - Patient Status Disposition: Home, Self-Care Condition: Fair Functional capacity at discharge: uses cane/walker Overall status at discharge: patient is progressing back to baseline - Discharge Instructions Instructions: Heart Failure (DC), Anemia (GEN) Follow Up With: Angel Mcelroy DO [Primary Care Provider] - 04/14/17 11:30 am () - Diet and Activity Activity: increase activity as tolerated Diet: advance to your usual diet (renal) Hospital course: Ms. Andrew is a 86 year old female with past no history of end-stage renal disease having dialysis on Tuesday and Tuesday. She also has a diastolic heart failure. And the respiratory distress and was noted to have ulnar edema, volume overload, and bilateral pleural effusions. The patient was put on fluid restriction and also had hemodialysis through our nephrology department. Patient also would undergo left thoracentesis. Cultures showed no growth in the pleural fluid initially analysis would suggest a transitive process. The patient has had a marked improvement she is now on room air and ambulating without difficulty. She denies any other complaints or concerns at this time. I did discuss importance of fluid restriction at home. Additionally she will wake herself daily and if her weight is up trending or she has become more edematous she will call her physician at home. We will also give her short course of lorazepam for anxiety as requested by the patient and family. I did discuss possible PT and OT eval with the patient and family as the family had remarked that she has seemed to have become weaker over the past month. However patient declines at this time. She states that she has a medical equipment she had needs at home and walk. 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 - Time Spent with Patient Total time spent providing and/or coordinating discharge services: Greater than 30 minutes - Constitutional Vitals: Temp Pulse Resp BP Pulse Ox 98.0 F 62 14 148/53 97 04/10/17 09:42 04/10/17 09:42 04/10/17 09:42 04/10/17 09:42 04/10/17 09:50 Exam: Gen.: This is a well-developed well-nourished 86-year-old female who is alert and orientated to person place time and situation. She sitting in a chair next to the room bed and appears to be comfortable and in no acute distress at this time. HEENT: Anicteric sclera, pupils equally round react to light and accommodation. The head is normocephalic and atraumatic. Moist mucous membranes. She does have dentures. The tongue and trachea are midline the neck is supple without masses or thyromegaly. There is a left tunnel dialysis catheter. It is well dressed with the Biopatch in placesigns of infection at this time. Heart: The heart has a regular rate and rhythm, he does have a 2/6 systolic ejection murmur heard best at the right upper sternal border. No JVD. Capillary pulses are normal. Lungs: She has a normal effort of breathing has a normal rise express the chest wall bilaterally. Lungs are clear to auscultation bilaterally and they are somewhat diminished at the bases. Abdomen: The abdomen is soft, nondistended, nontender to palpation. musculoskeletal: Grossly normal for age no gross deformity at this time. Extremities: There is no clubbing, cyanosis or edema. Integument: No rashes or lesions. <Lv Cifuentes - Last Filed: 04/10/17 19:20> Date of Encounter: 04/10/17 Date of admission: 04/07/17 07:22 Primary care physician: Angel Mcelroy DO Consults: 04/07/17 08:00 Consult to Dialysis [CONS] ONCE 04/07/17 08:35 Consult to Oncology [CONS] Routine Consulting Provider: [facility] Reason for Consult: PANCYTOPENIA Call Completed: No 04/08/17 08:00 Consult to Dialysis [CONS] ONCE 04/08/17 10:15 Consult to Dialysis [CONS] ONCE 04/09/17 08:15 Consult to Dialysis [CONS] ONCE - Patient Status Functional capacity at discharge: uses cane/walker Overall status at discharge: patient is progressing back to baseline - Diet and Activity Activity: increase activity as tolerated Diet: advance to your usual diet Hospital course: Ms. Andrew is a 86 year old female - Time Spent with Patient Total time spent providing and/or coordinating discharge services: - Constitutional Vitals: Temp Pulse Resp BP Pulse Ox 98.0 F 62 14 148/53 97 04/10/17 09:42 04/10/17 09:42 04/10/17 09:42 04/10/17 09:42 04/10/17 09:50 - Attending Attestation I examined this patient and my medical decision-making was reviewed with the Resident Physician, Dr. Lazaro. I agree with the documented findings, disposition and treatment plan as described except to the extent set forth below. I observed Dr. Lazaro obtaining history and performing physical exam on this patient today. the patient is back to baseline. I have discussed in detail CHF discharge instructions with the patient and her daughter at the bedside. I spent 35 minutes cornering this discharge.
== END 2017-04-10 14:03 | disposition home or self-care (01) | DRG 291 ==
LOC: 2ANU 02:13 → EMEROO 02:13 → 2ANU 07:01 → SUATTDRO 07:22
PROVIDERS: ADMIT Internal Medicine Endocrinology, Diabetes & Metabolism; ATTEND Internal Medicine